=== PATIENT | female | born 1930 | race Caucasian/White ===

== ENCOUNTER 2018-04-02 08:05 | Inpatient (IN) | END 2018-04-19 23:06 | DRG 4 ==

== ENCOUNTER 2018-06-07 09:55 | Day surgery (SDC) | payer MEDICAID, MEDICARE, OTHER ==
[~2018-06-07] VITALS: Ht 134.6 cm; Wt 50.0 kg
[~2018-06-07 09:55] MED LIST: ALEN70SO3 PO; ASPI-716 PO; CALCIUM CARBONATE PO; DIGO125T93 PO; IBUP-1544 PO; LIPA1CAP12 PO; PANT40TA4 PO; PREG50CA PO; ZINC50TA51 PO
[2018-06-07] MEDS ORDERED: METHYLENE BLUE 1% 10 ML INJ NGT STA (10:18)
--- NOTE | 2018-06-07 10:39 | PREAC ---
Date/Time of Note Date/Time of Note DATE: 06/07/18 TIME: 10:37 Anesthesia Eval and Record Evaluation Time Pre-Procedure Interview DATE: 06/07/18 TIME: 10:37 Age 87 Sex female NPO: 8 hrs Preoperative diagnosis ENTEROCUTANEOUS FISTULA (COLONIC FISTULA) Planned procedure COLONOSCOPY AND CLOSURE OF THE FISTULA Past Medical History Past Medical History: Includes Cardio: HTN, CAD, CHF Pulm: Other (RESPIRATORY FAILURE S/P TRACH) Neuro: Other (DEMENTIA) Surgery & Anesthesia Issues No known issue Meds Anticoagulation: No Beta Cristiano within 24 hr: No Reason Beta Cristiano not given: Pt. not on B-Cristiano Reported Medications Ibuprofen* (Ibuprofen*) 800 Mg Tablet, 800 MG PO PRN PAIN PRN 10/07/12 Aspirin* (Ecotrin*) 81 Mg Tablet., 81 MG PO DAILY 10/07/12 Alendronate Sodium* (Alendronate Sodium* Liq) 70 Mg/75 Ml Solution, 70 MG PO WEEKLY 10/07/12 Amylase/Lipase/Protease (Pancrelipase 10,000 Capsule Ec) 1 Cap.ec Capsule., 1 [place] [address] TID 10/07/12 Pregabalin* (Lyrica*) 50 Mg Capsule, 50 MG PO HS 10/07/12 Zinc (ZINC) 50 Mg Tablet, 50 MG PO DAILY 10/07/12 Digoxin* (Lanoxin*) 125 Mcg Tablet, 125 MCG PO DAILY 10/07/12 [Oyster [place] 500] No Conflict Check, PO BID 10/07/12 Pantoprazole* (Pantoprazole*) 40 Mg Tablet., 40 MG PO DAILY 10/07/12 Meds reviewed: Yes Allergies Coded Allergies: No Known Allergy (Unverified , 10/07/12) Allergies Reviewed: Yes Labs/Studies Labs Reviewed: Reviewed by anesthesiologist test: N/A Pre-procedure Exam Airway: Adequate mouth opening, Adequate thyromental dist Mallampati: Mallampati II Teeth: Abnormal (NO TEETH) Lung: Normal Heart: Normal ASA Physical Status ASA physical status: 3 Emergency: None Planned Anesthetic General/MAC: ETT (TRACH) Planned Pain Management Parenteral pain med Pre-operative Attestations Prior to commencing anesthesia and surgery, the patient was re-evaluated, there was verification of: *The patient's identity *The results of appropriate recent lab work and preoperative vital signs *The above evaluation not changing prior to induction *Anesthetic plan, risk benefits, alternative and complications discussed with patient/family; questions answered; patient/family understands, accepts and wishes to proceed. Vasyl Stanley M.D. Jun 07, 2018 10:39
[2018-06-07] MEDS ORDERED: PROPOFOL 40 ML ONE (10:40)
[2018-06-07] MEDS ORDERED: LIDOCAINE 100 MG SYRINGE ONE (10:40)
[2018-06-07 10:52] VITALS: Ht 134.6 cm; Wt 50.0 kg
[2018-06-07] MEDS ORDERED: MULTIVITAMIN LIQUID (10:52)
[2018-06-07] MEDS ORDERED: FLORAJEN3 (10:52)
[2018-06-07] MEDS ORDERED: LEVOTHYROXINE (10:52)
[2018-06-07] MEDS ORDERED: CHLORHEXADINE (10:52)
[2018-06-07] MEDS ORDERED: ZOFRAN (10:52)
[2018-06-07] MEDS ORDERED: LORAZEPAM (10:52)
[2018-06-07] MEDS ORDERED: AMIODARONE (10:52)
[2018-06-07] MEDS ORDERED: QUESTRAN (10:52)
[2018-06-07] MEDS ORDERED: LOMOTIL (10:52)
[2018-06-07] MEDS ORDERED: NYSTATIN (10:52)
[2018-06-07] MEDS ORDERED: SEROQUEL (10:52)
[2018-06-07] MEDS ORDERED: ACETAMINOPHEN (10:52)
[2018-06-07 10:55] VITALS: BP 113/68; PULSE 70; RESP 29
--- NOTE | 2018-06-07 12:18 | PAC ---
Date/Time of Note Date/Time of Note DATE: 06/07/18 TIME: 12:18 Post-Anesthesia Notes Post-Anesthesia Note Last documented vital signs Vital Signs Date Temp Pulse Resp B/P (MAP) Pulse Ox O2 O2 Flow FiO2 Time Delivery Rate 06/07/18 98.9 70 29 113/68 97 Nasal 12:18 (83) Cannula Activity: WNL Respiratory function: WNL Cardiovascular function: WNL Mental status: Baseline Pain reasonably controlled: Yes Hydration appropriate: Yes Nausea/Vomiting absent: Yes Vasyl Stanley M.D. Jun 07, 2018 12:18
[2018-06-07 13:19] VITALS: BP 146/66; PULSE 70; RESP 14
== END 2018-06-07 17:13 | disposition home or self-care (01) ==
LOC: GIL 09:55
PROVIDERS: ATTEND Internal Medicine Gastroenterology
DX: Z12.11 Encounter for screening for malignant neoplasm of colon (principal); K63.2 Fistula of intestine
CPT/HCPCS: 45378; J2001

== ENCOUNTER 2018-06-14 13:36 | Inpatient (IN) | payer MEDICARE, OTHER ==
[~2018-06-14] VITALS: Ht 157.5 cm; Wt 52.3 kg
[2018-06-14] VITALS (22 sets, daily range): BP systolic 82–264; BP diastolic 33–233; PULSE 70–72; RESP 11–28; Ht 157.5 cm; Wt 52.3 kg
[~2018-06-14 13:36] MED LIST changes: +ACETAMINOPHEN; -ALEN70SO3 PO; +AMIODARONE; -ASPI-716 PO; -CALCIUM CARBONATE PO; +CHLORHEXADINE; +FLORAJEN3; -IBUP-1544 PO; +LEVOTHYROXINE; -LIPA1CAP12 PO; +LOMOTIL; +LORAZEPAM; +MULTIVITAMIN LIQUID; +NYSTATIN; -PANT40TA4 PO; -PREG50CA PO; +QUESTRAN; +SEROQUEL; -ZINC50TA51 PO; +ZOFRAN
--- NOTE | 2018-06-14 13:52 | ERD ---
ER Documentation Chief Complaint Chief Complaint increased lethargy HPI The patient is a 87-year-old female, presenting to the ER because of increased lethargy and low blood pressure the history is obtained from the EMS., She was given normal saline 500 mL IV due to low blood pressure prior to arrival. She was put on ventilator about 2 days ago, usually she is on T-piece. She is unable to provide any history, but follow commands. The history is obtained from medical record. Her MD wants a head CT according to EMS Medical history: Chronic respite failure, dysphagia, dyslipidemia, CAD dementia, interstitial lung disease, history of atrial fibrillation, history of CHF, hypertension, anemia, hypothyroidism, h/o tachybrady syn Medical history: Tracheostomy, pacemaker ROS All systems reviewed and are negative except as per history of present illness. Medications Home Meds Reported Medications Chlorhexidine Gluconate (Peridex) 473 Ml Mouthwash, 15 ML MM QAM, BOTTLE 06/14/18 Ondansetron Hcl* (Zofran*) 4 Mg Tab, 4 MG PO Q6H PRN for NAUSEA AND OR VOMITING, TAB 06/14/18 Quetiapine Fumarate* (Seroquel*) 25 Mg Tablet, 25 MG GTB BID, #60 TAB 06/14/18 Nystatin (Nystatin) 100,000 Unit/1 Ml Oral.susp, 5 ML PO QID PRN for PRN, #60 ML 06/14/18 Quetiapine Fumarate* (Seroquel*) 25 Mg Tablet, 25 MG GTB BID, #60 TAB 06/14/18 Digoxin* (Digitek*) 125 Mcg Tablet, 0.125 MG PO Q48H, TAB 06/14/18 Cholestyramine* (Questran*) 1 Pkt Susp, 4 GM GTB DAILY, PACKET 06/14/18 Vit A,C & E/Lutein/Minerals (Ocuvite) 1 Each Tablet, 1 TAB GTB DAILY, TAB 06/14/18 Levothyroxine Sodium* (Levothyroxine Sodium*) 25 Mcg Tablet, 25 MCG GTB BEFORE BREAKFAST, #30 TAB 06/14/18 Lansoprazole* (Lansoprazole*) 30 Mg Capsule.dr, 30 MG GTB DAILY, CAP 06/14/18 Ascorbic Acid* (Vitamin C*) 500 Mg Capsule.sa, 500 MG GTB BID, CAP 06/14/18 Apixaban* (Eliquis*) 2.5 Mg Tablet, 2.5 MG GTB BID, TAB 06/14/18 Amiodarone Hcl* (Amiodarone Hcl*) 200 Mg Tablet, 400 MG GTB BID, #180 TAB 06/14/18 Metoprolol Tartrate* (Lopressor*) 25 Mg Tab, 25 MG GTB BID, #60 TAB 06/14/18 Balsam Kady/Kopperl Oil (Venelex Ointment) 60 Gm Oint..gm., 1 APPLIC TOP NEEDED PRN for PRN, #1 TUB 06/14/18 Mupirocin Calcium* (Mupirocin*) 2% - 15 Gram Cream..g., 1 APPLIC TOP DAILY, #1 TUB 06/14/18 Discontinued Reported Medications [Chlorhexadine] No Conflict Check 06/07/18 [Lorazepam] No Conflict Check 06/07/18 [Zofran] No Conflict Check 06/07/18 [Acetaminophen] No Conflict Check 06/07/18 [Lomotil] No Conflict Check 06/07/18 [Florajen3] No Conflict Check 06/07/18 [Nystatin] No Conflict Check 06/07/18 [Questran] No Conflict Check 06/07/18 [Multivitamin Liquid] No Conflict Check 06/07/18 [Amiodarone] No Conflict Check 06/07/18 [Seroquel] No Conflict Check 06/07/18 [Levothyroxine ] No Conflict Check 06/07/18 Digoxin* (Lanoxin*) 125 Mcg Tablet, 125 MCG PO DAILY 10/07/12 Ibuprofen* (Ibuprofen*) 800 Mg Tablet, 800 MG PO PRN PAIN PRN 10/07/12 Aspirin* (Ecotrin*) 81 Mg Tablet.dr, 81 MG PO DAILY 10/07/12 Alendronate Sodium* (Alendronate Sodium* Liq) 70 Mg/75 Ml Solution, 70 MG PO WEEKLY 10/07/12 Amylase/Lipase/Protease (Pancrelipase 10,000 Capsule Ec) 1 Cap.ec Capsule.dr, 1 [place] [address] TID 10/07/12 Pregabalin* (Lyrica*) 50 Mg Capsule, 50 MG PO HS 10/07/12 Zinc (ZINC) 50 Mg Tablet, 50 MG PO DAILY 10/07/12 [Oyster Shady 500] No Conflict Check, PO BID 10/07/12 Pantoprazole* (Pantoprazole*) 40 Mg Tablet.dr, 40 MG PO DAILY 10/07/12 Allergies Allergies: Coded Allergies: No Known Allergy (Unverified , 10/07/12) PMhx/Soc History of Surgery: Yes (RIGHT THIGH WITH METAL) Anesthesia Reaction: No Hx Neurological Disorder: Yes (DEMENTIA PER FACILITY RESP THERAPIST) Hx Respiratory Disorders: No (RESPIRATORY FAILURE WITH TRACH PORTEX SIZE 7) Hx Cardiac Disorders: Yes (CAD, CHF) Hx Psychiatric Problems: No Hx Miscellaneous Medical Probl: No Hx Alcohol Use: No Hx Substance Use: No Hx Tobacco Use: No Physical Exam Vitals Vital Signs Date Temp Pulse Resp B/P (MAP) Pulse Ox O2 O2 Flow FiO2 Time Delivery Rate 06/14/18 70 18 94/68 (77) 100 [place] 16:52 l Ventilato r 06/14/18 70 18 98 40 15:30 06/14/18 98.9 70 18 93/49 (64) 100 [place] 15:06 l Ventilato r 06/14/18 70 18 106/66 100 [place] 14:49 (79) l Ventilato r 06/14/18 100.4 70 17 94/49 (64) 98 [place] 14:27 l Ventilato r 06/14/18 100.4 14:16 06/14/18 100.4 70 17 82/62 (69) 98 14:10 06/14/18 70 18 98 40 14:00 Physical Exam Const: No acute distress. Head: Atraumatic. Eyes: Normal Conjunctiva. ENT: Normal External Ears, Nose and Mouth. Neck: Full range of motion. No meningismus. Resp: Clear to auscultation bilaterally. Cardio: Irregularly irregular Abd: Soft, non distended, normal bowel sounds, non tender. Skin: No petechiae or rashes. Back: No midline or flank tenderness. Ext: No cyanosis, or edema. Neur: Awake and alert. No focal deficit Psych: Unable to perform due to her condition Result Diagram: 06/14/18 1405 06/14/18 1405 Results 24 hrs Laboratory Tests Test 06/14/18 13:59 06/14/18 14:00 06/14/18 14:05 06/14/18 14:30 POC Venous 2.4 mmol/L Lactate Urine Color YELLOW Urine Clarity SLIGHTLY CLOUD Y Urine pH 8.0 Urine Specific 1.011 [place] Urine Ketones NEGATIVE mg/dL Urine Nitrite NEGATIVE mg/dL Urine Bilirubin NEGATIVE mg/dL Urine NEGATIVE mg/dL Urobilinogen Urine Leukocyte 1+ Darrell/ul Esterase Urine 1 /HPF Microscopic RBC Urine 23 /HPF Microscopic WBC Urine Bacteria FEW /HPF Urine NEGATIVE mg/dL Hemoglobin Urine Glucose NEGATIVE mg/dL Urine Total NEGATIVE mg/dl Protein White Blood 10.7 10^3/ul Count Red Blood Count 3.56 10^6/ul Hemoglobin 8.5 g/dl Hematocrit 30.8 % Mean 86.5 fl Corpuscular Volume Mean 23.9 pg Corpuscular Hemoglobin Mean 27.6 g/dl Corpuscular Hemoglobin Conc ent Red Cell 16.5 % Distribution Width Platelet Count 197 10^3/UL Mean Platelet 12.0 fl Volume Immature 0.500 % Granulocytes % Neutrophils % 70.8 % Lymphocytes % 20.8 % Monocytes % 7.4 % Eosinophils % 0.1 % Basophils % 0.4 % Nucleated Red 0.0 /100WBC Blood Cells % Immature 0.050 10^3/ul Granulocytes # Neutrophils # 7.6 10^3/ul Lymphocytes # 2.2 10^3/ul Monocytes # 0.8 10^3/ul Eosinophils # 0.0 10^3/ul Basophils # 0.0 10^3/ul Nucleated Red 0.0 10^3/ul Blood Cells # Prothrombin 15.7 Sec Time Prothrombin 1.2 Time Ratio INR 1.24 International Normalized Rati o Activated 45.6 Sec Partial Thrombo plast Time Sodium Level 141 mmol/L Potassium Level 3.7 mmol/L Chloride Level 82 mmol/L Carbon Dioxide 57 mmol/L Level Anion Gap 2 Blood Urea 61 mg/dl Nitrogen Creatinine 0.82 mg/dl Est Glomerular mL/min Filtrat Rate mL/min Glucose Level 105 mg/dl Calcium Level 8.7 mg/dl Total Bilirubin 0.3 mg/dl Direct 0.00 mg/dl Bilirubin Indirect 0.3 mg/dl Bilirubin Aspartate Amino 61 IU/L Transf (AST/SGO T) Alanine 46 IU/L Aminotransferas e (ALT/SGPT) Alkaline 106 IU/L Phosphatase Troponin I 0.052 ng/ml Total Protein 6.7 g/dl Albumin 2.8 g/dl Globulin 3.90 g/dl Albumin/Globuli 0.71 n Ratio Blood Gas Blood arterial Specimen Source Arterial Blood 06/14/2018 2:25 Date Drawn :55 PM Arterial Blood 7.586 pH (Temp corrected ) Arterial Blood 54.0 mmhg pCO2 (Temp correct) Arterial Blood 75.7 mmHG pO2 (Temp corrected ) Arterial Blood 50.2 mmol/L HCO3 Arterial Blood 25.4 mmol/L Base Excess Arterial Blood 96.6 mmHG Oxygen Saturati on Rusty Test ACCEPTAB Arterial Blood Right Radial Gas Puncture Site Arterial 0.5 % Blood Carboxyhe moglobin Arterial Blood 0.2 % Methemoglobin Blood Gas A-a 147.4 mmHg O2 Differential Oxyhemoglobin 95.9 % Percent Blood Gas 37.0 C Temperature Blood Gas 14.0 Respiration Rate Blood Gas 14 Actual Respiration Rat e Blood Gas VENT - AC Modality FiO2 40.0 % Blood Gas Tidal 450.0 mL Volume Blood Gas Low 5.0 cmH2O PEEP Setting Blood Gas DR CAMILO Critical Value Read Back Blood Gas TM Notified Whom Blood Gas 06/14/2018 2:35 Notified Time :42 PM Test 06/14/18 15:18 Blood Gas Blood arterial Specimen Source Arterial Blood 06/14/2018 5:26: Date Drawn 32 PM Arterial Blood 7.625 pH (Temp corrected ) Arterial Blood 44.6 mmhg pCO2 (Temp correct) Arterial Blood 67.5 mmHG pO2 (Temp corrected ) Arterial Blood 45.3 mmol/L HCO3 Arterial Blood 22.0 mmol/L Base Excess Arterial Blood 96.0 mmHG Oxygen Saturati on Rusty Test ACCEPTAB Arterial Blood Right Radial Gas Puncture Site Arterial 0.3 % Blood Carboxyhe moglobin Arterial Blood 0.3 % Methemoglobin Blood Gas A-a 166.4 mmHg O2 Differential Oxyhemoglobin 95.4 % Percent Blood Gas 37.0 C Temperature Blood Gas 18.0 Respiration Rate Blood Gas 18 Actual Respiration Rat e Blood Gas VENT - AC Modality FiO2 40.0 % Blood Gas Tidal 450.0 mL Volume Blood Gas Low 5.0 cmH2O PEEP Setting Blood Gas CAMILO Critical Value Read Back Blood Gas MDA Notified Whom Blood Gas 06/14/2018 5:31: Notified Time 19 PM Current Medications Medications Dose Sig/Merlin Start Time Status Last (Trade) Ordered Route PRN Stop Time Admin Dose Reason Admin Vancomycin 250 ml @ ONCE ONCE 06/14/18 DC 06/14/18 HCl 125 mls/hr IVPB 14:30 14:58 06/14/18 16:29 Piperacillin 100 ml @ ONCE ONCE 06/14/18 DC 06/14/18 Sod/ 200 mls/hr IVPB 14:30 14:16 Tazobactam 06/14/18 14:59 Sod 650 mg ONCE ONCE 06/14/18 DC 06/14/18 Acetaminophen AL 14:30 14:16 (Tylenol 06/14/18 14:31 Supp) Sodium 2,050 ml @ BOLUS X1 06/14/18 DC 06/14/18 Chloride 1,025 mls/hr ONCE IV 14:30 14:17 06/14/18 16:29 Lidocaine 5 ml ONCE ONCE 06/14/18 DC (Xylocaine SC 15:00 1% (Mpf)) 06/14/18 15:01 Sodium 1,000 ml @ Q1H ONCE 06/14/18 DC Chloride 1,000 mls/hr IV 17:00 06/14/18 17:59 Procedures/[place] [address] Radiology Main Line: [phone] DIAGNOSTIC IMAGING REPORT Patient: BEAU SUN : 1930 Age: 87 Sex: F MR #: [id number] DOS: 06/14/18 1352 Ordering MD: FORD CAMILO MD Location: E/R Room/Bed: PROCEDURE: CT Brain without contrast. CLINICAL INDICATION: Altered mental status TECHNIQUE: Routine CT scan of the brain was performed on a high resolution multi detector scanner without intravenous contrast. One or more of the fol lowing dose reduction techniques were used: Automated exposure control; Adjustment of the mA and/or kV according to patient size; Use of iterative reconstruction technique. CTDI = 36 mGy. DLP = 634 mGy-cm. DICOM images are available. COMPARISON: No prior relevant examinations are available for comparison. FINDINGS: Hemorrhage: No evidence of intracranial hemorrhage. Acute ischemic changes: No evidence of acute ischemic changes. Mass effect: None. Parenchymal volume: Moderate central parenchymal volume loss is evident. Ventricular system: Concordant with parenchymal volume. 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 There are numerous and confluent areas of significant low attenuation change within the supratentorial white matter most compatible with severe chronic microvascular ischemic changes. Atherosclerotic calcifications of the cavernous portions of both internal carotid arteries are present. Extracranial soft tissues: Unremarkable. Calvarium: No fractures. Paranasal sinuses: Mild secretions throughout. Mastoid air cells: Visualized mastoid air cells are clear. IMPRESSION: No acute intracranial abnormalities. Severe chronic-appearing microvascular ischemic changes of the supratentorial white matter with small chronic appearing cerebellar infarcts. MRI of the brain can be obtained for further evaluation. RPTAT: AADD .Norbert Omer MD, MD Date Time Electronically viewed and signed by .Norbert Omer MD, MD on 06/14/2018 16:38 .B/ CC: FORD CAMILO MD [id number] [place] [address] Radiology Main Line: [phone] DIAGNOSTIC IMAGING REPORT Patient: BEAU SUN : 1930 Age: 87 Sex: F MR #: [id number] DOS: 06/14/18 1352 Ordering MD: FORD CAMILO MD Location: E/R Room/Bed: PROCEDURE: XR Chest. CLINICAL INDICATION: Sepsis . Dyspnea TECHNIQUE: Single frontal chest x-ray. COMPARISON: CHEST 05/31/2018; CHEST 05/03/2018 FINDINGS: There is tracheostomy tube and left-sided dual chamber cardiac pacer in place. . Cardiomegaly with calcific atherosclerosis of the aorta is seen.. There is bibasilar atelectasis or consolidations improved on the right. Small left pleural effusion blunts the costophrenic angle.. There are multiple old healed right rib fractures.. IMPRESSION: Cardiomegaly with calcific atherosclerosis of the aorta. Bibasilar atelectasis or consolidations with small left pleural effusion. Tracheostomy tube and left-sided cardiac pacer in place.. RPTAT: BBCC .Kemar Torres MD, MD Date Time Electronically viewed and signed by .Kemar Torres MD, MD on 06/14/2018 14:54 .L/ CC: FORD CAMILO MD [id number] EKG: Read by emergency physician Rate/Rhythm: Atrial paced 71 beats/min QRS, ST, T-waves: No ST elevation, nonspecific T abn, prolonged QT Impression: Abnormal EKG MEDICAL MAKING DECISION: The patient is 87-year-old female, presenting with acute severe sepsis, acute cystitis, acute dehydration. She was treated with vancomycin IV, Zosyn IV, normosaline 30 mL/kg IV and additional 1 L of saline for acute severe sepsis The differential diagnoses considered include but are not limited to ventilator associated pneumonia, aspiration pneumonia, UTI, pyelonephritis MDM: Patient's infectious symptoms have not stabilized and the patient is at risk of rapid decompensation. The patient will be admitted for careful hydration, antibiotic therapy, and infectious source control. SEVERE SEPSIS CRITERIA: Infectious source:uti End organ damage indicated by: Lactate > 2.0 mmol/L SEPSIS MANAGEMENT Time of recognition of severe sepsis:2:30 pm 3 HOUR BUNDLE Blood cultures x 2 before broad-spectrum antibiotics: Yes 30 ml/kg NS bolus completed Initial lactate2.4 Repeat lactate Pending SEPTIC SHOCK ASSESSMENT: No lactic acid > 4.0 No persistent hypotension (SBP < 90 or 40 mmHg drop, MAP < 65) despite 30 mL/kg IV fluid bolus CRITICAL CARE Critical care time 35 minutes Emergent fluid management while maintaining close respiratory support. Provision of immediate and broad-spectrum antibiotic therapy. Simultaneous assessment for possible sources in order to direct targeted therapy. Consideration for invasive and chemical support to prevent cardiopulmonary collapse. Critical care time is independent of procedures performed. Departure Diagnosis: Primary Impression: Severe sepsis Additional Impressions: UTI (urinary tract infection) Dehydration Anemia Condition: Critical Comments I discussed the findings with the patient. I discussed the patient with the hospitalist Dr De La Torre at 5 pm . who was made aware of the lab, the treatment, the patient condition. The patient is admitted to ICU Disclaimer: Inadvertent spelling and grammatical errors are likely due to EHR/dictation software use and do not reflect on the overall quality of patient care. Also, please note that the electronic time recorded on this note does not necessarily reflect the actual time of the patient encounter. FORD CAMILO MD Jun 14, 2018 13:52
[2018-06-14] MEDS ORDERED: MUPI15CR9 TOP (14:26)
[2018-06-14] MEDS ORDERED: BALS60OI TOP (14:27)
[2018-06-14] MEDS ORDERED: METO-448 GTB (14:28)
[2018-06-14] MEDS ORDERED: AMIO200T4 GTB (14:29)
[2018-06-14] MEDS ORDERED: PIPER-TAZO 3.375 GM IV (PMX) 100 ML IVPB ONE (14:30)
[2018-06-14] MEDS ORDERED: APIX2.5T GTB (14:30)
[2018-06-14] MEDS ORDERED: ASCO500C7 GTB (14:30)
[2018-06-14] MEDS ORDERED: ACETAMINOPHEN 650 MG SUPP PR ONE (14:30)
[2018-06-14] MEDS ORDERED: SOD CHLORIDE 0.9% 2,050 ML IV ONE (14:30)
[2018-06-14] MEDS ORDERED: VANCOMYCIN 1 GM (PMX) 250 ML IVPB ONE (14:30)
[2018-06-14] MEDS ORDERED: LANS30CA GTB (14:31)
[2018-06-14] MEDS ORDERED: LEVO25TA6 GTB (14:31)
[2018-06-14] MEDS ORDERED: VIT1TABL32 GTB (14:32)
[2018-06-14] MEDS ORDERED: QUESTRAN GTB (14:32)
[2018-06-14] MEDS ORDERED: DIGO125T PO (14:33)
[2018-06-14] MEDS ORDERED: QUET25TA GTB ×2 (14:34→14:36)
[2018-06-14] MEDS ORDERED: NYST1000 PO (14:35)
[2018-06-14] MEDS ORDERED: ONDA4TAB13 PO (14:36)
[2018-06-14] MEDS ORDERED: CHLO473M4 MM (14:37)
[2018-06-14] MEDS ORDERED: LIDOCAINE 1% (MPF) 5 ML VIAL SC ONE (15:00)
[2018-06-14] MEDS ORDERED: SOD CHLORIDE 0.9% 1,000 ML IV ONE (17:00)
[2018-06-14] MEDS ORDERED: ONDANSETRON 4 MG INJ IV PRN (18:30)
[2018-06-14] MEDS ORDERED: NACL 0.9% 3 ML SYG IV SCH (18:30)
[2018-06-14] MEDS ORDERED: VANCOMYCIN IV PER PHARMACY XX SCH (18:30)
--- NOTE | 2018-06-14 18:35 | HP ---
Date/Time of Note Date/Time of Note DATE: 06/14/18 TIME: 18:25 Assessment/Plan VTE Prophylaxis SCD applied (from Nsg): Yes Pharmacological prophylaxis: apixaban Lines/Catheters IV Catheter Type (from Nrsg): Saline Lock Assessment/Plan Hospital Course 1. Septic shock secondary to UTI Broad-spectrum antibiotics with vancomycin and Zosyn IV fluids Admit to ICU Monitor lactic acid Follow-up on cultures 2. Chronic respiratory failure secondary to CHF and pneumonia status post tracheostomy Continue vent support Pulmonology consultation 3. Hypothyroidism Continue home meds 4. A. fib status post pacemaker placement Continue anticoagulation 5. Normocytic anemia likely secondary to chronic disease Monitor 6. Metabolic alkalosis likely secondary to contraction IV fluids 7. Azotemia likely secondary to dehydration IV fluids Prophylaxis: Eliquis Result Diagram: 06/14/18 1405 06/14/18 1405 Results 24hrs Laboratory Tests Test 06/14/18 13:59 06/14/18 14:00 06/14/18 14:05 06/14/18 14:30 POC Venous 2.4 *H Lactate Urine Color YELLOW Urine Clarity SLIGHTLY CLOUDY A Urine pH 8.0 Urine Specific 1.011 [place] Urine Ketones NEGATIVE Urine Nitrite NEGATIVE Urine Bilirubin NEGATIVE Urine NEGATIVE Urobilinogen Urine Leukocyte 1+ H Esterase Urine 1 Microscopic RBC Urine 23 H Microscopic WBC Urine Bacteria FEW A Urine NEGATIVE Hemoglobin Urine Glucose NEGATIVE Urine Total NEGATIVE Protein White Blood 10.7 # Count Red Blood Count 3.56 L Hemoglobin 8.5 L Hematocrit 30.8 L Mean 86.5 Corpuscular Volume Mean 23.9 L Corpuscular Hemoglobin Mean 27.6 L Corpuscular Hemoglobin Conc ent Red Cell 16.5 H Distribution Width Platelet Count 197 # Mean Platelet 12.0 H Volume Immature 0.500 H Granulocytes % Neutrophils % 70.8 Lymphocytes % 20.8 Monocytes % 7.4 Eosinophils % 0.1 Basophils % 0.4 Nucleated Red 0.0 Blood Cells % Immature 0.050 H Granulocytes # Neutrophils # 7.6 H Lymphocytes # 2.2 Monocytes # 0.8 Eosinophils # 0.0 Basophils # 0.0 Nucleated Red 0.0 Blood Cells # Prothrombin 15.7 H Time Prothrombin 1.2 Time Ratio INR 1.24 International Normalized Rati o Activated 45.6 H Partial Thrombo plast Time Sodium Level 141 Potassium Level 3.7 Chloride Level 82 L Carbon Dioxide 57 *H Level Anion Gap 2 L Blood Urea 61 H Nitrogen Creatinine 0.82 Est Glomerular Filtrat Rate mL/min Glucose Level 105 Calcium Level 8.7 Total Bilirubin 0.3 Direct 0.00 Bilirubin Indirect 0.3 Bilirubin Aspartate Amino 61 H Transf (AST/SGO T) Alanine 46 Aminotransferas e (ALT/SGPT) Alkaline 106 Phosphatase Troponin I 0.052 Total Protein 6.7 Albumin 2.8 L Globulin 3.90 H Albumin/Globuli 0.71 n Ratio Blood Gas Blood Specimen arterial Source Arterial Blood 06/14/2018 2:25 Date Drawn :55 PM Arterial Blood 7.586 *H pH (Temp corrected ) Arterial Blood 54.0 H pCO2 (Temp correct) Arterial Blood 75.7 L pO2 (Temp corrected ) Arterial Blood 50.2 *H HCO3 Arterial Blood 25.4 H Base Excess Arterial Blood 96.6 Oxygen Saturati on Rusty Test ACCEPTAB Arterial Blood Right Radial Gas Puncture Site Arterial 0.5 Blood Carboxyhe moglobin Arterial Blood 0.2 Methemoglobin Blood Gas A-a 147.4 H O2 Differential Oxyhemoglobin 95.9 Percent Blood Gas 37.0 Temperature Blood Gas 14.0 Respiration Rate Blood Gas 14 Actual Respiration Rat e Blood Gas VENT - AC Modality FiO2 40.0 Blood Gas Tidal 450.0 Volume Blood Gas Low 5.0 PEEP Setting Blood Gas DR CAMILO Critical Value Read Back Blood Gas TM Notified Whom Blood Gas 06/14/2018 2:35 Notified Time :42 PM Test 06/14/18 15:18 06/14/18 17:15 Blood Gas Blood arterial Specimen Source Arterial Blood 06/14/2018 5:26: Date Drawn 32 PM Arterial Blood 7.625 *H pH (Temp corrected ) Arterial Blood 44.6 pCO2 (Temp correct) Arterial Blood 67.5 L pO2 (Temp corrected ) Arterial Blood 45.3 *H HCO3 Arterial Blood 22.0 H Base Excess Arterial Blood 96.0 Oxygen Saturati on Rusty Test ACCEPTAB Arterial Blood Right Radial Gas Puncture Site Arterial 0.3 Blood Carboxyhe moglobin Arterial Blood 0.3 Methemoglobin Blood Gas A-a 166.4 H O2 Differential Oxyhemoglobin 95.4 Percent Blood Gas 37.0 Temperature Blood Gas 18.0 Respiration Rate Blood Gas 18 Actual Respiration Rat e Blood Gas VENT - AC Modality FiO2 40.0 Blood Gas Tidal 450.0 Volume Blood Gas Low 5.0 PEEP Setting Blood Gas CAMILO Critical Value Read Back Blood Gas MDA Notified Whom Blood Gas 06/14/2018 5:31: Notified Time 19 PM Lactic Acid 2.3 *H Level HPI/ROS Admit Date/Time Admit Date/Time June 14, 2018 Hx of Present Illness Patient is an 87-year-old female with a history of respiratory failure status post tracheostomy, diastolic heart failure, hypothyroidism, A. fib status post pacemaker placement, septic shock secondary to pneumonia and UTI. Patient was hospitalized several months ago for septic shock as well as respiratory failure and had tracheostomy placement. Patient was discharged to a rehab facility, patient was sent from rehab due to hypotension and fevers. In the ER UA was consistent with UTI and lactic acid was elevated. Patient was started on IV fluids and given antibiotics, history is obtained from patient's daughter who is bedside. ROS Subjective hx not possible: pt critical status PMH/Family/Social Past Medical History As per HPI Coded Allergies: No Known Allergy (Unverified , 10/07/12) Past Surgical History Pacemaker placement Family History Significant Family History: no pertinent family hx Social History Alcohol Use: none Smoking Status: Never smoker Drug Use: none Exam/Review of Systems Vital Signs Vitals Vital Signs Date Temp Pulse Resp B/P (MAP) Pulse Ox O2 O2 Flow FiO2 Time Delivery Rate 06/14/18 70 20 161/100 93 Mechanical 17:56 (120) Ventilator 06/14/18 40 17:30 06/14/18 98.9 15:06 Exam Constitutional: non-verbal Respiratory: clear to auscultation Cardiovascular: regular rate and rhythm Gastrointestinal: soft; No distended Musculoskeletal: nl extremities to inspection ISAIAH CANDELARIO Jun 14, 2018 18:35
[2018-06-14] MEDS: morphine 2 MG INJ IV PRN ×2 (19:03→19:09)
[2018-06-14] MEDS ORDERED: morphine 4 MG/ML VIAL ONE (19:07)
[2018-06-14] MEDS ORDERED: hydrALAzine 20 MG INJ IV ONE (20:00)
[2018-06-14] MEDS: SOD CHLORIDE 0.9% 1,000 ML IV SCH (20:05)
[2018-06-14] MEDS: ASCORBIC ACID 500 MG TAB GTB SCH (20:29)
[2018-06-14] MEDS: AMIODARONE 200 MG TAB GTB SCH (20:29)
[2018-06-14] MEDS: APIXABAN 5 MG TABLET GTB SCH (20:30)
[2018-06-14] MEDS: QUETIAPINE 25 MG TAB GTB SCH (20:30)
[2018-06-14] MEDS: PIPER-TAZO 3.375 GM IV (PMX) 100 ML IVPB SCH ×2 (20:31→23:34)
[2018-06-15] VITALS (36 sets, daily range): BP systolic 79–170; BP diastolic 49–140; PULSE 69–84; RESP 12–29
[2018-06-15] MEDS ORDERED: SOD CHLORIDE 0.9% 1,000 ML IV ONE (01:00)
[2018-06-15] MEDS: SOD CHLORIDE 0.9% 1,000 ML IV SCH (03:25)
[2018-06-15] MEDS: PIPER-TAZO 3.375 GM IV (PMX) 100 ML IVPB SCH ×4 (05:12→23:44)
[2018-06-15] MEDS: LEVOTHYROXINE 25 MCG TAB GTB SCH (06:24)
--- NOTE | 2018-06-15 07:38 | CONS ---
Date/Time of Note Date/Time of Note DATE: 06/15/18 TIME: 07:28 Assessment/Plan Assessment/Plan Hospital Course 1. Septic shock 2. Paroxysmal atrial fibrillation and P supraventricular tachycardia 3. Respiratory failure status post tracheostomy now back on the vent 4. Sick sinus syndrome status post permanent pacemaker 5. Urinary tract infection and possible pneumonia 6. History of congestive heart failure/diastolic heart failure 7. History of enterocutaneous fistula and liver disease 8. Dysphagia status post PEG placement 9. Encephalopathy 10. Lactic acidosis Recommendations: Patient has already been started on Zosyn. Eliquis will be continued as long as no active bleeding is noted I will continue with amiodarone at the current dose for now and will decrease the dose slowly as long as she remains in sinus or paced rhythm Vent support to be continued Gentle IV fluid. Avoid fluid overload Nutritional support to be resumed once okay from GI standpoint I will start the patient on Protonix for GI prophylaxis as well Electrolytes including potassium to be replaced as needed basis Thank you for his referral. We will continue to follow along with you MARLENA GARCIA MD [facility] Result Diagram: 06/15/18 0431 06/15/18 0432 Results 24hrs Laboratory Tests Test 06/14/18 13:59 06/14/18 14:00 06/14/18 14:05 06/14/18 14:30 POC Venous 2.4 *H Lactate Urine Color YELLOW Urine Clarity SLIGHTLY CLOUDY A Urine pH 8.0 Urine Specific 1.011 [place] Urine Ketones NEGATIVE Urine Nitrite NEGATIVE Urine Bilirubin NEGATIVE Urine NEGATIVE Urobilinogen Urine Leukocyte 1+ H Esterase Urine 1 Microscopic RBC Urine 23 H Microscopic WBC Urine Bacteria FEW A Urine NEGATIVE Hemoglobin Urine Glucose NEGATIVE Urine Total NEGATIVE Protein White Blood 10.7 # Count Red Blood Count 3.56 L Hemoglobin 8.5 L Hematocrit 30.8 L Mean 86.5 Corpuscular Volume Mean 23.9 L Corpuscular Hemoglobin Mean 27.6 L Corpuscular Hemoglobin Conc ent Red Cell 16.5 H Distribution Width Platelet Count 197 # Mean Platelet 12.0 H Volume Immature 0.500 H Granulocytes % Neutrophils % 70.8 Lymphocytes % 20.8 Monocytes % 7.4 Eosinophils % 0.1 Basophils % 0.4 Nucleated Red 0.0 Blood Cells % Immature 0.050 H Granulocytes # Neutrophils # 7.6 H Lymphocytes # 2.2 Monocytes # 0.8 Eosinophils # 0.0 Basophils # 0.0 Nucleated Red 0.0 Blood Cells # Prothrombin 15.7 H Time Prothrombin 1.2 Time Ratio INR 1.24 International Normalized Rati o Activated 45.6 H Partial Thrombo plast Time Sodium Level 141 Potassium Level 3.7 Chloride Level 82 L Carbon Dioxide 57 *H Level Anion Gap 2 L Blood Urea 61 H Nitrogen Creatinine 0.82 Est Glomerular Filtrat Rate mL/min Glucose Level 105 Calcium Level 8.7 Total Bilirubin 0.3 Direct 0.00 Bilirubin Indirect 0.3 Bilirubin Aspartate Amino 61 H Transf (AST/SGO T) Alanine 46 Aminotransferas e (ALT/SGPT) Alkaline 106 Phosphatase Troponin I 0.052 Total Protein 6.7 Albumin 2.8 L Globulin 3.90 H Albumin/Globuli 0.71 n Ratio Blood Gas Blood Specimen arterial Source Arterial Blood 06/14/2018 2:25 Date Drawn :55 PM Arterial Blood 7.586 *H pH (Temp corrected ) Arterial Blood 54.0 H pCO2 (Temp correct) Arterial Blood 75.7 L pO2 (Temp corrected ) Arterial Blood 50.2 *H HCO3 Arterial Blood 25.4 H Base Excess Arterial Blood 96.6 Oxygen Saturati on Rusty Test ACCEPTAB Arterial Blood Right Radial Gas Puncture Site Arterial 0.5 Blood Carboxyhe moglobin Arterial Blood 0.2 Methemoglobin Blood Gas A-a 147.4 H O2 Differential Oxyhemoglobin 95.9 Percent Blood Gas 37.0 Temperature Blood Gas 14.0 Respiration Rate Blood Gas 14 Actual Respiration Rat e Blood Gas VENT - AC Modality FiO2 40.0 Blood Gas Tidal 450.0 Volume Blood Gas Low 5.0 PEEP Setting Blood Gas DR CAMILO Critical Value Read Back Blood Gas TM Notified Whom Blood Gas 06/14/2018 2:35 Notified Time :42 PM Test 06/14/18 15:18 06/14/18 17:15 06/15/18 04:31 06/15/18 04:32 Blood Gas Blood arterial Specimen Source Arterial Blood 06/14/2018 5:26: Date Drawn 32 PM Arterial Blood 7.625 *H pH (Temp corrected ) Arterial Blood 44.6 pCO2 (Temp correct) Arterial Blood 67.5 L pO2 (Temp corrected ) Arterial Blood 45.3 *H HCO3 Arterial Blood 22.0 H Base Excess Arterial Blood 96.0 Oxygen Saturati on Rusty Test ACCEPTAB Arterial Blood Right Radial Gas Puncture Site Arterial 0.3 Blood Carboxyhe moglobin Arterial Blood 0.3 Methemoglobin Blood Gas A-a 166.4 H O2 Differential Oxyhemoglobin 95.4 Percent Blood Gas 37.0 Temperature Blood Gas 18.0 Respiration Rate Blood Gas 18 Actual Respiration Rat e Blood Gas VENT - AC Modality FiO2 40.0 Blood Gas Tidal 450.0 Volume Blood Gas Low 5.0 PEEP Setting Blood Gas CAMILO Critical Value Read Back Blood Gas MDA Notified Whom Blood Gas 06/14/2018 5:31: Notified Time 19 PM Lactic Acid 2.3 *H 2.0 Level White Blood 8.6 Count Red Blood Count 3.31 L Hemoglobin 8.1 L Hematocrit 28.4 L Mean 85.8 Corpuscular Volume Mean 24.5 L Corpuscular Hemoglobin Mean 28.5 L Corpuscular Hemoglobin Conc ent Red Cell 17.3 H Distribution Width Platelet Count 145 # Mean Platelet 11.6 H Volume Immature 0.500 H Granulocytes % Neutrophils % 75.1 Lymphocytes % 16.1 Monocytes % 6.9 Eosinophils % 0.9 Basophils % 0.5 Nucleated Red 0.0 Blood Cells % Immature 0.040 H Granulocytes # Neutrophils # 6.5 Lymphocytes # 1.4 Monocytes # 0.6 Eosinophils # 0.1 Basophils # 0.0 Nucleated Red 0.0 Blood Cells # Sodium Level 146 H Potassium Level 3.5 Chloride Level 100 # Carbon Dioxide 38 #H Level Anion Gap 8 Blood Urea 46 #H Nitrogen Creatinine 0.70 Est Glomerular Filtrat Rate mL/min Glucose Level 80 Calcium Level 7.8 L Phosphorus 2.6 Level Magnesium Level 2.2 Troponin I 0.046 Consultation Date/Type/Reason Admit Date/Time June 14, 2018 Date of Consultation: Jun 15, 2018 Type of Consult cv Reason for Consultation afib . Requesting Provider: ISAIAH CANDELARIO of Present Illness Interventional cardiology consultation note Chief complaint: Hypotension and fever Reason for consult: Arrhythmia, sick sinus syndrome with some post permanent pacemaker, proximal atrial fibrillation History of present illness: Thank you for this referral. History was obtained from discussion with the family and the staff and physicians. Patient's old records were extensively reviewed. Patient also very well-known to me from office visits This is a pleasant 87-year-old female with multiple complicated medical history who has had more complicated recent course. Patient has recently been admitted to the hospital with respiratory failure and pneumonia required to be intubation and had to be trach and PEG. Patient was at [facility] and was transferred to rehab. However yesterday was brought back because of fever and hypotension. Patient was noted to be in shock and received multiple boluses of IV fluid. Currently blood pressure has stabilized she is on the vent again and a 50% oxygen. Patient has had history of paroxysmal atrial fibrillation and SVT. She has had a pacemaker placed by myself a few years ago has been functioning no rmally so far. 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 Garcia, [employer]) Hypothyroidism Osteoporosis History of recurrent liver infection status post drainage and multiple antibiotic treatment previously History of enterocutaneous fistula which was apparently closed by Dr. Earl through endoscopy Respiratory failure status with tracheostomy Dysphagia status post PEG placement Encephalopathy Coded Allergies: No Known Allergy (Unverified , 10/07/12) Past Surgical History R femur fracture Dec 2017. Pelvis fracture 2017 R flank cyst surgery at [facility] 2 years ago 2012 permanent pacemaker placement with a [employer] pacemaker Tracheostomy placement PEG placement Closure of enterocutaneous fistula through colonoscopy procedure done few weeks ago Social History Alcohol Use: none Smoking Status: Never smoker Drug Use: none Family history: No reported history of early coronary artery disease Review of system: Patient denies all others except for above-mentioned Past Medical History Medications Current Medications Sodium Chloride 1,000 ml @ 100 mls/hr Q10H IV Last administered on 06/15/18at 03:25; Admin Dose 100 MLS/HR; Start 06/14/18 at 18:25 IV Flush (NS 3 ml) 3 ml PER PROTOCOL IV ; Start 06/14/18 at 18:30 Ondansetron HCl (Zofran Inj) 4 mg Q6H PRN IV NAUSEA AND/OR VOMITING; Start 06/14/18 at 18:30 Morphine Sulfate (morphine) 2 mg Q4H PRN IV SEVERE PAIN LEVEL 7-10 Last administered on 06/14/18at 19:09; Admin Dose 2 MG; Start 06/14/18 at 18:30 Vancomycin HCl (Vanco Iv Per Pharmacy) VANCOMYCIN PER PHARMACY PER PROTOCOL XX ; Start 06/14/18 at 18:30 Piperacillin Sod/ Tazobactam Sod 100 ml @ 200 mls/hr Q6 IVPB Last administered on 06/15/18at 05:12; Admin Dose 200 MLS/HR; Start 06/14/18 at 20:00 Amiodarone HCl (Cordarone) 400 mg BID GTB Last administered on 06/14/18at 20:29; Admin Dose 400 MG; Start 06/14/18 at 21:00 Apixaban (Eliquis) 2.5 mg BID GTB Last administered on 06/14/18at 20:30; Admin Dose 2.5 MG; Start 06/14/18 at 21:00 Ascorbic Acid (Vitamin C) 500 mg BID GTB Last administered on 06/14/18at 20:29; Admin Dose 500 MG; Start 06/14/18 at 21:00 Chlorhexidine Gluconate (Peridex) 15 ml QAM MM ; Start 06/15/18 at 09:00 Cholestyramine Resin (Questran) 1 pkt DAILY GTB ; Start 06/15/18 at 09:00 Lansoprazole (Prevacid) 30 mg DAILY GTB ; Start 06/15/18 at 09:00 Levothyroxine Sodium (Synthroid) 25 mcg BEFORE BREAKFAST GTB Last administered on 06/15/18at 06:24; Admin Dose 25 MCG; Start 06/15/18 at 07:00 Quetiapine Fumarate (Seroquel) 25 mg BID GTB Last administered on 06/14/18at 20:30; Admin Dose 25 MG; Start 06/14/18 at 21:00 Beta Carotene (Ocuvite) 1 tab DAILY GTB ; Start 06/15/18 at 09:00 Miscellaneous Information 1 applic DAILY XX ; Start 06/15/18 at 09:00; Status UNV Vancomycin HCl 250 ml @ 125 mls/hr Q24H IVPB ; Start 06/15/18 at 08:00 Influenza Virus Vaccine Quadrival (Fluzone) 0.5 ml ONCE ONCE IM* ; Start 06/15/18 at 10:00; Stop 06/15/18 at 10:01 Allergies: Coded Allergies: No Known Allergy (Unverified , 10/07/12) Social History Alcohol Use: none Smoking Status: Former smoker Drug Use: none Exam/Review of Systems Vital Signs Vitals Vital Signs Date Temp Pulse Resp B/P (MAP) Pulse Ox O2 O2 Flow FiO2 Time Delivery Rate 06/15/18 77 24 85/61 (69) 100 Mechanical 06:00 Ventilator 06/15/18 50 05:26 06/15/18 98.1 04:00 Intake and Output 06/14/18 06/14/18 06/15/18 1414:59 22:59 06:59 IntakeIntake Total 550 ml 1600 ml OutputOutput Total 850 ml 820 ml BalanceBalance -300 ml 780 ml Exam General: Elderly thin female status post tracheostomy on the vent with 50% oxygen HEENT: NC/AT. pupils are equal. round. NECK: Status post tracheostomy. no stridor. CV: RRR. systolic murmur; no gallop or rubs. PULM: no wheezing. Mild rhonchi. GI: SOFT, NT, ND, no rebound or guarding Extremity: No significant LE edema. no clubbing. neuro: awake and alert, but does not answer my question Psych: calm the moment rectal: deferred EKG was personally reviewed atrial paced rhythm nonspecific T wave abnormalities Chest x-ray shows: Cardiomegaly with calcific atherosclerosis of the aorta. Bibasilar atelectasis or consolidations with small left pleural effusion. Tracheostomy tube and left-sided cardiac pacer in place.. Medications Medications Current Medications Sodium Chloride 1,000 ml @ 100 mls/hr Q10H IV Last administered on 06/15/18at 03:25; Admin Dose 100 MLS/HR; Start 06/14/18 at 18:25 IV Flush (NS 3 ml) 3 ml PER PROTOCOL IV ; Start 06/14/18 at 18:30 Ondansetron HCl (Zofran Inj) 4 mg Q6H PRN IV NAUSEA AND/OR VOMITING; Start 06/14/18 at 18:30 Morphine Sulfate (morphine) 2 mg Q4H PRN IV SEVERE PAIN LEVEL 7-10 Last administered on 06/14/18at 19:09; Admin Dose 2 MG; Start 06/14/18 at 18:30 Vancomycin HCl (Vanco Iv Per Pharmacy) VANCOMYCIN PER PHARMACY PER PROTOCOL XX ; Start 06/14/18 at 18:30 Piperacillin Sod/ Tazobactam Sod 100 ml @ 200 mls/hr Q6 IVPB Last administered on 06/15/18at 05:12; Admin Dose 200 MLS/HR; Start 06/14/18 at 20:00 Amiodarone HCl (Cordarone) 400 mg BID GTB Last administered on 06/14/18at 20:29; Admin Dose 400 MG; Start 06/14/18 at 21:00 Apixaban (Eliquis) 2.5 mg BID GTB Last administered on 06/14/18at 20:30; Admin Dose 2.5 MG; Start 06/14/18 at 21:00 Ascorbic Acid (Vitamin C) 500 mg BID GTB Last administered on 06/14/18at 20:29; Admin Dose 500 MG; Start 06/14/18 at 21:00 Chlorhexidine Gluconate (Peridex) 15 ml QAM MM ; Start 06/15/18 at 09:00 Cholestyramine Resin (Questran) 1 pkt DAILY GTB ; Start 06/15/18 at 09:00 Lansoprazole (Prevacid) 30 mg DAILY GTB ; Start 06/15/18 at 09:00 Levothyroxine Sodium (Synthroid) 25 mcg BEFORE BREAKFAST GTB Last administered on 06/15/18at 06:24; Admin Dose 25 MCG; Start 06/15/18 at 07:00 Quetiapine Fumarate (Seroquel) 25 mg BID GTB Last administered on 06/14/18at 20:30; Admin Dose 25 MG; Start 06/14/18 at 21:00 Beta Carotene (Ocuvite) 1 tab DAILY GTB ; Start 06/15/18 at 09:00 Miscellaneous Information 1 applic DAILY XX ; Start 06/15/18 at 09:00; Status UNV Vancomycin HCl 250 ml @ 125 mls/hr Q24H IVPB ; Start 06/15/18 at 08:00 Influenza Virus Vaccine Quadrival (Fluzone) 0.5 ml ONCE ONCE IM* ; Start 06/15/18 at 10:00; Stop 06/15/18 at 10:01 MARLENA GARCIA MD Jun 15, 2018 07:38
[2018-06-15] MEDS ORDERED: POTASSIUM CHLORIDE 20 MEQ POWDER FOR ORAL SOLN GTB ONE (08:00)
[2018-06-15] MEDS: VANCOMYCIN 1 GM 250 ML IVPB SCH (08:06)
[2018-06-15] MEDS: ASCORBIC ACID 500 MG TAB GTB SCH ×2 (08:45→20:08)
[2018-06-15] MEDS: APIXABAN 5 MG TABLET GTB SCH ×2 (08:45→20:08)
[2018-06-15] MEDS: BETA CAROTENE/VIT C/E/MIN TAB GTB SCH (08:45)
[2018-06-15] MEDS: CHLORHEXIDINE GLUCONATE 15 ML UD CUP MM SCH (08:45)
[2018-06-15] MEDS: QUETIAPINE 25 MG TAB GTB SCH ×2 (08:45→20:08)
[2018-06-15] MEDS: CHOLESTYRAMINE 4 GM PACKET GTB SCH (08:46)
[2018-06-15] MEDS: AMIODARONE 200 MG TAB GTB SCH ×2 (08:46→20:09)
[2018-06-15] MEDS ORDERED: LANSOPRAZOLE 30 MG CAP GTB SCH (09:00)
[2018-06-15] MEDS ORDERED: MUPIROCIN CALCIUM XX SCH (09:00)
[2018-06-15] MEDS ORDERED: INFLUENZA VIRUS VACCINE 0.5 ML (DISPENSING) IM* ONE (10:00)
--- NOTE | 2018-06-15 11:06 | CONS ---
DATE OF ADMISSION: 06/14/2018 DATE OF CONSULTATION: REASON FOR CONSULTATION: Ventilator management. Thank you, Dr. De La Torre, for this consultation. HISTORY OF PRESENT ILLNESS: This is an unfortunate 87-year-old lady, vent-dependent respiratory fail ure, recent prolonged admission at [facility], transferred from [facility], [facility], where she was experiencing worsening shortness of breath, orthopnea, PND, was brought here for further evaluation, found to be hypotensive requiring new aggressive volume resusci tation. Since that time, her blood pressure is improved and at no point does she require vasopressor support. Few further details are available. PAST MEDICAL HISTORY: 1. Vent dependent respiratory failure. 2. Recurrent sepsis. 3. Hypothyroidism. 4. History of atrial fibrillation with pacemaker. 5. History of renal insufficiency. MEDICATIONS: Per chart. ALLERGIES: None. SOCIAL HISTORY: She is a nonsmoker, no alcohol, no history of drug use. FAMILY HISTORY: Noncontributory. SYSTEMS REVIEW: A 12-point review of systems currently unable to perform. PHYSICAL EXAMINATION: GENERAL: Elderly-appearing lady on mechanical ventilation via tracheostomy. VITAL SIGNS: Temperature 98, pulse is 71, blood pressure 106/65, O2 saturation 96%, FIO2 of 50%. NECK: Trach site clean and intact. CARDIAC: S1, S2, no added sounds or murmurs. CHEST: Diminished air entry bilaterally. ABDOMEN: Soft, nontender. No guarding or rebound. EXTREMITIES: No cyanosis, clubbing, edema. NEUROLOGIC: Generalized weakness. LABORATORY DATA: White count 8.6, hemoglobin 8.1, platelets of 145. BUN 46, creatinine 0.7. Lactic acid initially 2.3, now 2.0. Initial arterial blood gas demonstrated a contraction alkalosis. IMPRESSION AND PLAN: 1. Likely dehydration with hypotension, now improving with volume resuscitation. 2. Resolving contraction alkalosis. 3. Chronic respiratory failure. 4. Continue sepsis screen, although currently negative. 5. Consider de-escalation of antibiotics soon. His cultures are negative. Dictated By: PATTI WALLACE MD SV/HECTOR Conf#: [id number] DID#: [id number] CC: ISAIAH DE LA TORRE MD;*EndCC*
--- NOTE | 2018-06-15 12:57 | CONS ---
DATE OF ADMISSION: 06/14/2018 DATE OF CONSULTATION: 06/15/2018 TYPE OF CONSULTATION: Infectious disease. REASON FOR CONSULTATION: Antibiotic management. HISTORY OF PRESENT ILLNESS: Morgan Agustin is an 87-year-old female who comes in with increased leth argy and low blood pressure. She was given 500 mL of IV fluids. We will do the blood pressure as leon torrez was put on a ventilator about 2 days ago. Usually, she is on a T-piece. Her past problems include: 1. Chronic respiratory failure. 2. Status post tracheostomy. 3. Dyslipidemia. 4. Coronary artery disease. 5. Dementia. 6. Interstitial lung disease. 7. History of atrial fibrillation. 8. Pacemaker placement. 9. CHF. 10. Hypertension. 11. Hypothyroidism. 12. Anemia. 13. History of tachybrady syndrome. 14. She has right thigh with metal surgery. PAST MEDICAL HISTORY: As outlined. SOCIAL HISTORY: She does not smoke, drink or abuse drugs. ALLERGIES: NONE TO PENICILLIN, SULFA OR FOODS. MEDICATIONS: Per chart. REVIEW OF SYSTEMS: As per HPI. PHYSICAL EXAMINATION: GENERAL: She is awake, responsive, in no acute distress. VITAL SIGNS: T-max 100.4, blood pressure is 82/62. SKIN: Without generalized rash. HEENT: Within normal limits. NECK: Supple. LYMPH NODES: None palpable. CHEST: Decreased breath sounds at the bases. HEART: Irregularly irregular rhythm. ABDOMEN: Soft, nontender without organosplenomegaly or masses. EXTREMITIES: Without cyanosis, clubbing or edema. RECTAL AND GENITAL: Deferred. NEUROLOGIC: No focal neurological abnormality. ANCILLARY LABORATORY DATA: White count 10.7, H and H of 8.5 and 30.8, platelet count is 197,000. BU N and creatinine is 61/0.82, glucose of 105. Her chloride was up to . Urine is 1+ leukocyte es terase, 23 white cells per high powered field. As noted, her white count was 10.7 with 71 polys. 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 She has chronic appea ring microvascular ischemic changes of the supratentorial white matter with chronic appearing cerebel lar infarcts. Chest x-ray shows tracheostomy and left-sided cardiac pacemaker, cardiomegaly with ath erosclerosis, bibasilar atelectasis and consolidation with small left pleural effusion. The patient was placed on vancomycin and Zosyn because of the infiltrates in her lung and respiratory distress. We will continue her on current therapy. She was seen also by Dr. Witt who noted vent ilator dependent respiratory failure, recent prolonged admission at [facility], transferred from intermediate facility, recurrent sepsis, hypothyroidism, atrial fibrillation with pacemaker, callie l insufficiency. IMPRESSION: Likely dehydration with hypotension resolving, contraction alkalosis, chronic respirator y failure. Continue sepsis screen. Consider de-escalation of antibiotics soon once cultures are neg ative. I concur with that outlook. I will dictate my findings to the hospitalist and to Dr. Witt . Dictated By: SEBASTIAN SHORT MD, JD/NTS Conf#: [id number] DID#: [id number] CC: PATTI WITT MD; ISAIAH CANDELARIO MD;*End*
--- NOTE | 2018-06-15 14:19 | PN ---
Date/Time of Note Date/Time of Note DATE: 06/15/18 TIME: 14:15 Assessment/Plan VTE Prophylaxis Risk score (from Nsg)>0 risk: 10 Pharmacological prophylaxis: apixaban Lines/Catheters IV Catheter Type (from Nrsg): Saline Lock Assessment/Plan Hospital Course 1. Septic shock secondary to UTI-improved Broad-spectrum antibiotics with vancomycin and Zosyn IV fluids Downgrade to telemetry ID consultation obtained Monitor lactic acid Follow-up on cultures 2. Chronic respiratory failure secondary to CHF and pneumonia status post tr acheostomy Continue vent support Pulmonology consultation appreciated 3. Hypothyroidism Continue home meds 4. A. fib status post pacemaker placement Continue anticoagulation Cardiology consultation appreciated 5. Normocytic anemia likely secondary to chronic disease Monitor 6. Metabolic alkalosis likely secondary to contraction IV fluids 7. Azotemia likely secondary to dehydration IV fluids 8. 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 Patients supervisor patching has been consulted Prophylaxis: Eliquis DC planning: Anticipate DC back to subacute facility in the next several days Result Diagram: 06/15/18 0431 06/15/18 0432 Results 24hrs Laboratory Tests Test 06/14/18 14:30 06/14/18 15:18 06/14/18 17:15 06/15/18 04:31 Blood Gas Blood arterial Blood arterial Specimen Source Arterial Blood 06/14/2018 2:25: 06/14/2018 5:26: Date Drawn 55 PM 32 PM Arterial Blood 7.586 *H 7.625 *H pH (Temp corrected) Arterial Blood 54.0 H 44.6 pCO2 (Temp correct) Arterial Blood 75.7 L 67.5 L pO2 (Temp corrected) Arterial Blood 50.2 *H 45.3 *H HCO3 Arterial Blood 25.4 H 22.0 H Base Excess Arterial Blood 96.6 96.0 Oxygen Saturatio n Rusty Test ACCEPTAB ACCEPTAB Arterial Blood Right Radial Right Radial Gas Puncture Site Arterial 0.5 0.3 Blood Carboxyhem oglobin Arterial Blood 0.2 0.3 Methemoglobin Blood Gas A-a O2 147.4 H 166.4 H Differential Oxyhemoglobin 95.9 95.4 Percent Blood Gas 37.0 37.0 Temperature Blood Gas 14.0 18.0 Respiration Rate Blood Gas Actual 14 18 Respiration Rate Blood Gas VENT - AC VENT - AC Modality FiO2 40.0 40.0 Blood Gas Tidal 450.0 450.0 Volume Blood Gas Low 5.0 5.0 PEEP Setting Blood Gas DR TON CAMILO Critical Value Read Back Blood Gas TM MDA Notified Whom Blood Gas 06/14/2018 2:35: 06/14/2018 5:31: Notified Time 42 PM 19 PM Lactic Acid 2.3 *H Level White Blood 8.6 Count Red Blood Count 3.31 L Hemoglobin 8.1 L Hematocrit 28.4 L Mean Corpuscular 85.8 Volume Mean Corpuscular 24.5 L Hemoglobin Mean Corpuscular 28.5 L Hemoglobin Nubia nt Red Cell 17.3 H Distribution Width Platelet Count 145 # Mean Platelet 11.6 H Volume Immature 0.500 H Granulocytes % Neutrophils % 75.1 Lymphocytes % 16.1 Monocytes % 6.9 Eosinophils % 0.9 Basophils % 0.5 Nucleated Red 0.0 Blood Cells % Immature 0.040 H Granulocytes # Neutrophils # 6.5 Lymphocytes # 1.4 Monocytes # 0.6 Eosinophils # 0.1 Basophils # 0.0 Nucleated Red 0.0 Blood Cells # Test 06/15/18 04:32 06/15/18 07:00 Sodium Level 146 H Potassium Level 3.5 Chloride Level 100 # Carbon Dioxide 38 #H Level Anion Gap 8 Blood Urea 46 #H Nitrogen Creatinine 0.70 Est Glomerular Filtrat Rate mL/min Glucose Level 80 Lactic Acid 2.0 Level Calcium Level 7.8 L Phosphorus Level 2.6 Magnesium Level 2.2 Troponin I 0.046 Blood Gas Blood arterial Specimen Source Arterial Blood 06/15/2018 8:45: Date Drawn 20 AM Arterial Blood 7.455 H pH (Temp corrected) Arterial Blood 58.4 H pCO2 (Temp correct) Arterial Blood 134.4 H pO2 (Temp corrected) Arterial Blood 40.1 *H HCO3 Arterial Blood 14.5 H Base Excess Arterial Blood 98.6 Oxygen Saturatio n Rusty Test ACCEPTAB Arterial Blood Right Radial Gas Puncture Site Arterial 0.7 Blood Carboxyhem oglobin Arterial Blood 0.4 Methemoglobin Blood Gas A-a O2 156.4 H Differential Oxyhemoglobin 97.5 Percent Blood Gas 37.0 Temperature Blood Gas 12.0 Respiration Rate Blood Gas Actual 12 Respiration Rate Blood Gas VENT - AC Modality FiO2 50.0 Blood Gas Tidal 450.0 Volume Blood Gas Low 5.0 PEEP Setting Blood Gas Mary Anne OROZCO RN Critical Value Read Back Blood Gas Mary Anne DAVIS [employer] Notified Whom Blood Gas 06/15/2018 9:10: Notified Time 01 AM Subjective 24 Hr Interval Summary Subjective hx not possible: pt non-verbal Exam/Review of Systems Vital Signs Vitals Vital Signs Date Temp Pulse Resp B/P (MAP) Pulse Ox O2 O2 Flow FiO2 Time Delivery Rate 06/15/18 73 12:00 06/15/18 97.7 16 98/55 (69) 95 11:38 06/15/18 50 11:00 06/15/18 Mechanical 11:00 Ventilator Intake and Output 06/14/18 06/14/18 06/15/18 1515:00 23:00 07:00 IntakeIntake Total 650 ml 1670 ml OutputOutput Total 970 ml 725 ml BalanceBalance -320 ml 945 ml Exam Constitutional: non-verbal Respiratory: clear to auscultation Cardiovascular: regular rate and rhythm Gastrointestinal: soft; No distended Musculoskeletal: nl extremities to inspection Medications Medications Current Medications IV Flush (NS 3 ml) 3 ml PER PROTOCOL IV ; Start 06/14/18 at 18:30 Ondansetron HCl (Zofran Inj) 4 mg Q6H PRN IV NAUSEA AND/OR VOMITING; Start 06/14/18 at 18:30 Morphine Sulfate (morphine) 2 mg Q4H PRN IV SEVERE PAIN LEVEL 7-10 Last administered on 06/14/18at 19:09; Admin Dose 2 MG; Start 06/14/18 at 18:30 Vancomycin HCl (Vanco Iv Per Pharmacy) VANCOMYCIN PER PHARMACY PER PROTOCOL XX ; Start 06/14/18 at 18:30 Piperacillin Sod/ Tazobactam Sod 100 ml @ 200 mls/hr Q6 IVPB Last administered on 06/15/18at 05:12; Admin Dose 200 MLS/HR; Start 06/14/18 at 20:00 Amiodarone HCl (Cordarone) 400 mg BID GTB Last administered on 06/15/18at 08:46; Admin Dose 400 MG; Start 06/14/18 at 21:00 Apixaban (Eliquis) 2.5 mg BID GTB Last administered on 06/15/18at 08:45; Admin Dose 2.5 MG; Start 06/14/18 at 21:00 Ascorbic Acid (Vitamin C) 500 mg BID GTB Last administered on 06/15/18 08:45; Admin Dose 500 MG; Start 06/14/18 at 21:00 Chlorhexidine Gluconate (Peridex) 15 ml QAM MM Last administered on 06/15/18 08:45; Admin Dose 15 ML; Start 06/15/18 at 09:00 Cholestyramine Resin (Questran) 1 pkt DAILY GTB Last administered on 06/15/18 08:46; Admin Dose 1 PKT; Start 06/15/18 at 09:00 Levothyroxine Sodium (Synthroid) 25 mcg BEFORE BREAKFAST GTB Last administered on 06/15/18 06:24; Admin Dose 25 MCG; Start 06/15/18 at 07:00 Quetiapine Fumarate (Seroquel) 25 mg BID GTB Last administered on 06/15/18at 08:45; Admin Dose 25 MG; Start 06/14/18 at 21:00 Beta Carotene (Ocuvite) 1 tab DAILY GTB Last administered on 06/15/18 08:45; Admin Dose 1 TAB; Start 06/15/18 at 09:00 Vancomycin HCl 250 ml @ 125 mls/hr Q24H IVPB Last administered on 06/15/18 08:06; Admin Dose 125 MLS/HR; Start 06/15/18 at 08:00 Pantoprazole (Protonix Iv) 40 mg DAILY@06 IV ; Start 06/16/18 at 06:00 Mupirocin (Bactroban) 1 applic DAILY TOP ; Start 06/15/18 at 12:00 ISAIAH CANDELARIO Jun 15, 2018 14:19
[2018-06-15] MEDS: MUPIROCIN 2% 22 GM OINT TOP SCH (17:53)
[2018-06-16] VITALS (25 sets, daily range): BP systolic 97–131; BP diastolic 52–68; PULSE 69–77; RESP 13–20
[2018-06-16] MEDS: PANTOPRAZOLE 40 MG INJ IV SCH (05:31)
[2018-06-16] MEDS: PIPER-TAZO 3.375 GM IV (PMX) 100 ML IVPB SCH (05:31)
[2018-06-16] MEDS: LEVOTHYROXINE 25 MCG TAB GTB SCH (06:20)
--- NOTE | 2018-06-16 08:35 | CONS ---
Date/Time of Note Date/Time of Note DATE: 06/16/18 TIME: 08:33 Consult Date/Type/Reason Admit Date/Time Jun 14, 2018 at 17:13 Initial Consult Date 06/15/18 Requesting Provider: ISAIAH CANDELARIO Subjective Interventional cardiology follow-up progress note Subjective: Case discussed with the staff and telemetry was reviewed. Patient remains mostly in atrial paced rhythm. No more episode of atrial fibrillation Patient started with tracheostomy on the vent and does not answer my question Objective: General: Elderly thin female status post tracheostomy on the vent with 30% oxygen HEENT: NC/AT. pupils are equal. round. NECK: Status post tracheostomy. no stridor. CV: RRR. systolic murmur; no gallop or rubs. PULM: no wheezing. Mild rhonchi. GI: SOFT, NT, ND, no rebound or guarding Extremity: No significant LE edema. no clubbing. neuro: awake and appears alert, but does not answer my question Psych: calm the moment rectal: deferred EKG was personally reviewed atrial paced rhythm nonspecific T wave abnormalities Chest x-ray shows: Cardiomegaly with calcific atherosclerosis of the aorta. Bibasilar atelectasis or consolidations with small left pleural effusion. Tracheostomy tube and left-sided cardiac pacer in place.. Objective Vital Signs Date Temp Pulse Resp B/P (MAP) Pulse Ox O2 O2 Flow FiO2 Time Delivery Rate 06/16/18 97.7 72 18 97/52 (67) 98 07:54 06/16/18 30 05:15 06/16/18 Mechanical 04:05 Ventilator Intake and Output 06/15/18 06/15/18 06/16/18 1515:00 23:00 07:00 IntakeIntake Total 460 ml 360 ml 680 ml OutputOutput Total 125 ml 350 ml 500 ml BalanceBalance 335 ml 10 ml 180 ml Results/Medications Result Diagram: 06/15/18 0431 06/15/18 0432 Results 24 hrs Laboratory Tests Test 06/16/18 06:56 White Blood Count Pending Red Blood Count Pending Hemoglobin Pending Hematocrit Pending Mean Corpuscular Volume Pending Mean Corpuscular Hemoglobin Pending Mean Corpuscular Hemoglobin Concent Pending Red Cell Distribution Width Pending Platelet Count Pending Mean Platelet Volume Pending Medications Current Medications IV Flush (NS 3 ml) 3 ml PER PROTOCOL IV ; Start 06/14/18 at 18:30 Ondansetron HCl (Zofran Inj) 4 mg Q6H PRN IV NAUSEA AND/OR VOMITING; Start 06/14/18 at 18:30 Morphine Sulfate (morphine) 2 mg Q4H PRN IV SEVERE PAIN LEVEL 7-10 Last administered on 06/14/18 19:09; Admin Dose 2 MG; Start 06/14/18 at 18:30 Vancomycin HCl (Vanco Iv Per Pharmacy) VANCOMYCIN PER PHARMACY PER PROTOCOL XX ; Start 06/14/18 at 18:30 Piperacillin Sod/ Tazobactam Sod 100 ml @ 200 mls/hr Q6 IVPB Last administered on 06/16/18 05:31; Admin Dose 200 MLS/HR; Start 06/14/18 at 20:00 Amiodarone HCl (Cordarone) 400 mg BID GTB Last administered on 06/15/18 20:09; Admin Dose 400 MG; Start 06/14/18 at 21:00 Apixaban (Eliquis) 2.5 mg BID GTB Last administered on 06/15/18 20:08; Admin Dose 2.5 MG; Start 06/14/18 at 21:00 Ascorbic Acid (Vitamin C) 500 mg BID GTB Last administered on 06/15/18 20:08; Admin Dose 500 MG; Start 06/14/18 at 21:00 Chlorhexidine Gluconate (Peridex) 15 ml QAM MM Last administered on 06/15/18 08:45; Admin Dose 15 ML; Start 06/15/18 at 09:00 Cholestyramine Resin (Questran) 1 pkt DAILY GTB Last administered on 06/15/18 08:46; Admin Dose 1 PKT; Start 06/15/18 at 09:00 Levothyroxine Sodium (Synthroid) 25 mcg BEFORE BREAKFAST GTB Last administered on 06/16/18 06:20; Admin Dose 25 MCG; Start 06/15/18 at 07:00 Quetiapine Fumarate (Seroquel) 25 mg BID GTB Last administered on 06/15/18 20:08; Admin Dose 25 MG; Start 06/14/18 at 21:00 Beta Carotene (Ocuvite) 1 tab DAILY GTB Last administered on 1/16/19at 08:45; Admin Dose 1 TAB; Start 06/15/18 at 09:00 Vancomycin HCl 250 ml @ 125 mls/hr Q24H IVPB Last administered on 06/15/18at 08:06; Admin Dose 125 MLS/HR; Start 06/15/18 at 08:00 Pantoprazole (Protonix Iv) 40 mg DAILY@06 IV Last administered on 06/16/18at 05:31; Admin Dose 40 MG; Start 06/16/18 at 06:00 Mupirocin (Bactroban) 1 applic DAILY TOP Last administered on 06/15/18at 17:53; Admin Dose 1 APPLIC; Start 06/15/18 at 12:00 Assessment/Plan Chief Complaint/Hosp Course 1. Septic shock 2. Paroxysmal atrial fibrillation and P supraventricular tachycardia 3. Respiratory failure status post tracheostomy now back on the vent 4. Sick sinus syndrome status post permanent pacemaker 5. Urinary tract infection and possible pneumonia 6. History of congestive heart failure/diastolic heart failure 7. History of enterocutaneous fistula and liver disease 8. Dysphagia status post PEG placement 9. Encephalopathy 10. Lactic acidosis Recommendations: Patient has already been started on Zosyn. Antibiotic management as per ID recommendation Eliquis will be continued as long as no active bleeding is noted I will continue with amiodarone at the current dose for now and will decrease the dose slowly as long as she remains in sinus or A paced rhythm Vent support to be continued to be managed by pulmonary Avoid fluid overload Nutritional support to be resumed Continue GI prophylaxis as well Electrolytes including potassium to be replaced as needed basis TSH has been ordered. Results still pending Thank you for his referral. We will continue to follow along with you MARLENA MCKEON MD LOCATED WITHIN [facility] MARLENA MCKEON MD Jun 16, 2018 08:35
--- NOTE | 2018-06-16 08:54 | CONS ---
Date/Time of Note Date/Time of Note DATE: 06/16/18 TIME: 08:48 Assessment/Plan Assessment/Plan Hospital Course GI follow up pt admit with uti sepsis. previous colocutanoeus fistula closed endoscopically with Oves[place] clip, samantha by Dr Cohen PE RUQ bandage dry. examined area for induration/fluctuance with gently pressure, stool expressed, streamed from fistula. gentle pressure again fistula dry a/p rebandage fistula, no evidence of cellulitis abd benign, doubt any inter drainage. keep clean and dry, hopefully with time will seal. communicated findingsto Dr Earl Result Diagram: 06/15/18 0431 06/15/18 0432 Results 24hrs Laboratory Tests Test 06/16/18 06:56 White Blood Count Pending Red Blood Count Pending Hemoglobin Pending Hematocrit Pending Mean Corpuscular Volume Pending Mean Corpuscular Hemoglobin Pending Mean Corpuscular Hemoglobin Concent Pending Red Cell Distribution Width Pending Platelet Count Pending Mean Platelet Volume Pending Consultation Date/Type/Reason Admit Date/Time Jun 14, 2018 at 17:13 Initial Consult Date 06/15/18 Type of Consult follow up Requesting Provider: ISAIAH CANDELARIO Exam/Review of Systems Vital Signs Vitals Vital Signs Date Temp Pulse Resp B/P (MAP) Pulse Ox O2 O2 Flow FiO2 Time Delivery Rate 06/16/18 97.7 72 18 97/52 (67) 98 07:54 06/16/18 30 05:15 06/16/18 Mechanical 04:05 Ventilator Intake and Output 06/15/18 06/15/18 06/16/18 1515:00 23:00 07:00 IntakeIntake Total 460 ml 360 ml 680 ml OutputOutput Total 125 ml 350 ml 500 ml BalanceBalance 335 ml 10 ml 180 ml Medications Medications Current Medications IV Flush (NS 3 ml) 3 ml PER PROTOCOL IV ; Start 06/14/18 at 18:30 Ondansetron HCl (Zofran Inj) 4 mg Q6H PRN IV NAUSEA AND/OR VOMITING; Start 06/14/18 at 18:30 Morphine Sulfate (morphine) 2 mg Q4H PRN IV SEVERE PAIN LEVEL 7-10 Last administered on 06/14/18at 19:09; Admin Dose 2 MG; Start 06/14/18 at 18:30 Vancomycin HCl (Vanco Iv Per Pharmacy) VANCOMYCIN PER PHARMACY PER PROTOCOL XX ; Start 06/14/18 at 18:30 Piperacillin Sod/ Tazobactam Sod 100 ml @ 200 mls/hr Q6 IVPB Last administered on 06/16/18 05:31; Admin Dose 200 MLS/HR; Start 06/14/18 at 20:00 Amiodarone HCl (Cordarone) 400 mg BID GTB Last administered on 06/15/18 20:09; Admin Dose 400 MG; Start 06/14/18 at 21:00 Apixaban (Eliquis) 2.5 mg BID GTB Last administered on 06/15/18 20:08; Admin Dose 2.5 MG; Start 06/14/18 at 21:00 Ascorbic Acid (Vitamin C) 500 mg BID GTB Last administered on 06/15/18at 20:08; Admin Dose 500 MG; Start 06/14/18 at 21:00 Chlorhexidine Gluconate (Peridex) 15 ml QAM MM Last administered on 06/15/18at 0 8:45; Admin Dose 15 ML; Start 06/15/18 at 09:00 Cholestyramine Resin (Questran) 1 pkt DAILY GTB Last administered on 06/15/18 08:46; Admin Dose 1 PKT; Start 06/15/18 at 09:00 Levothyroxine Sodium (Synthroid) 25 mcg BEFORE BREAKFAST GTB Last administered on 06/16/18 06:20; Admin Dose 25 MCG; Start 06/15/18 at 07:00 Quetiapine Fumarate (Seroquel) 25 mg BID GTB Last administered on 06/15/18 20 :08; Admin Dose 25 MG; Start 06/14/18 at 21:00 Beta Carotene (Ocuvite) 1 tab DAILY GTB Last administered on 06/15/18 08:45; Admin Dose 1 TAB; Start 06/15/18 at 09:00 Vancomycin HCl 250 ml @ 125 mls/hr Q24H IVPB Last administered on 06/15/18 08:06; Admin Dose 125 MLS/HR; Start 06/15/18 at 08:00 Pantoprazole (Protonix Iv) 40 mg DAILY@06 IV Last administered on 06/16/18 05:31; Admin Dose 40 MG; Start 06/16/18 at 06:00 Mupirocin (Bactroban) 1 applic DAILY TOP Last administered on 06/15/18at 17:53; Admin Dose 1 APPLIC; Start 06/15/18 at 12:00 VANESSA ESTRELLA MD Jun 16, 2018 08:54
[2018-06-16] MEDS: CHLORHEXIDINE GLUCONATE 15 ML UD CUP MM SCH (09:30)
[2018-06-16] MEDS: BETA CAROTENE/VIT C/E/MIN TAB GTB SCH (09:30)
[2018-06-16] MEDS: QUETIAPINE 25 MG TAB GTB SCH ×2 (09:30→20:15)
[2018-06-16] MEDS: VANCOMYCIN 1 GM 250 ML IVPB SCH (09:30)
[2018-06-16] MEDS: APIXABAN 5 MG TABLET GTB SCH ×2 (09:30→20:15)
[2018-06-16] MEDS: CHOLESTYRAMINE 4 GM PACKET GTB SCH (09:30)
[2018-06-16] MEDS: AMIODARONE 200 MG TAB GTB SCH ×2 (09:31→20:14)
[2018-06-16] MEDS: ASCORBIC ACID 500 MG TAB GTB SCH ×2 (09:31→20:14)
[2018-06-16] MEDS: MUPIROCIN 2% 22 GM OINT TOP SCH (09:32)
--- NOTE | 2018-06-16 09:32 | CONS ---
Date/Time of Note Date/Time of Note DATE: 06/16/18 TIME: 09:29 Assessment/Plan Assessment/Plan Assessment/Plan Ventilator setting; AC of 12, tidal volume 450, PEEP of 5, 30% FiO2. Assessment recommendations; 1. Patient with history of chronic respiratory failure, and VDR F and chronic encephalopathy admitted for hypotension likely due to intravascular volume depletion with significant hemodynamic improvement after hydration. 2. UTI with E. coli. Currently on broad-spectrum antimicrobial coverage. 3. History of cardiac arrhythmia, status post pacemaker in the past. 4. Mild hypercapnia. 5. Interstitial lung disease. 6. Anemia and thrombocytopenia. Continue current supportive care. De-escalate antibiotics. I would suggest switching the patient to Levaquin. Recommend discharge to rehab center. Overa ll prognosis remains poor. Result Diagram: 06/16/18 0656 06/16/18 0656 Results 24hrs Laboratory Tests Test 06/16/18 06:56 White Blood Count 12.8 #H Red Blood Count 3.32 L Hemoglobin 7.9 L Hematocrit 27.7 L Mean Corpuscular Volume 83.4 Mean Corpuscular Hemoglobin 23.8 L Mean Corpuscular Hemoglobin Concent 28.5 L Red Cell Distribution Width 17.9 H Platelet Count 193 # Mean Platelet Volume 12.6 H Immature Granulocytes % 0.500 H Neutrophils % 85.4 H Lymphocytes % 9.5 L Monocytes % 4.1 Eosinophils % 0.3 Basophils % 0.2 Nucleated Red Blood Cells % 0.0 Immature Granulocytes # 0.060 H Neutrophils # 10.9 H Lymphocytes # 1.2 Monocytes # 0.5 Eosinophils # 0.0 Basophils # 0.0 Nucleated Red Blood Cells # 0.0 Sodium Level 144 Potassium Level 3.4 L Chloride Level 105 Carbon Dioxide Level 35 H Anion Gap 4 L Blood Urea Nitrogen 30 #H Creatinine 0.65 Est Glomerular Filtrat Rate mL/min Glucose Level 122 # Calcium Level 8.5 Magnesium Level 2.2 Total Bilirubin 0.1 L Direct Bilirubin 0.00 Indirect Bilirubin 0.1 Aspartate Amino Transf (AST/SGOT) 69 H Alanine Aminotransferase (ALT/SGPT) 54 Alkaline Phosphatase 114 B-Type Natriuretic Peptide 747 H Total Protein 5.9 L Albumin 2.5 L Globulin 3.40 H Albumin/Globulin Ratio 0.73 Thyroid Stimulating Hormone (TSH) Pending Digoxin Level < 0.4 L Consultation Date/Type/Reason Admit Date/Time Jun 14, 2018 at 17:13 Initial Consult Date 06/15/18 Type of Consult Pulmonary Reason for Consultation Patient's condition remains stable. Has remained hemodynamically stable. General exam; elderly female, on ventilator via tracheostomy, awake but noncommu nicative. Currently in no distress. Requesting Provider: ISAIAH CANDELARIO Exam/Review of Systems Vital Signs Vitals Vital Signs Date Temp Pulse Resp B/P (MAP) Pulse Ox O2 O2 Flow FiO2 Time Delivery Rate 06/16/18 97.7 72 18 97/52 (67) 98 07:54 06/16/18 30 07:20 06/16/18 Mechanical 04:05 Ventilator Intake and Output 06/15/18 06/15/18 06/16/18 1515:00 23:00 07:00 IntakeIntake Total 460 ml 360 ml 680 ml OutputOutput Total 125 ml 350 ml 500 ml BalanceBalance 335 ml 10 ml 180 ml Exam H EENT exam; supple neck, no JVD. No lymphadenopathy. Midline trachea. No thyromegaly. Tracheostomy in place. Insertion site is clean. Patient is edentulous. Pupils are small bilaterally. Chest exam; diminished breath sounds bilaterally. S1-S2 audible, no murmurs. Irregular rhythm. Pacemaker in left chest wall. Abdomen exam; soft, scaphoid. No organomegaly. Nondistended. G-tube in place. Bowel sounds audible. Extremity exam; no peripheral edema. PERIOPERATIVE TECH exam; patient awake but noncommunicative. Medications Medications Current Medications IV Flush (NS 3 ml) 3 ml PER PROTOCOL IV ; Start 06/14/18 at 18:30 Ondansetron HCl (Zofran Inj) 4 mg Q6H PRN IV NAUSEA AND/OR VOMITING; Start 06/14/18 at 18:30 Morphine Sulfate (morphine) 2 mg Q4H PRN IV SEVERE PAIN LEVEL 7-10 Last administered on 06/14/18at 19:09; Admin Dose 2 MG; Start 06/14/18 at 18:30 Vancomycin HCl (Vanco Iv Per Pharmacy) VANCOMYCIN PER PHARMACY PER PROTOCOL XX ; Start 06/14/18 at 18:30 Piperacillin Sod/ Tazobactam Sod 100 ml @ 200 mls/hr Q6 IVPB Last administered on 06/16/18at 05:31; Admin Dose 200 MLS/HR; Start 06/14/18 at 20:00 Amiodarone HCl (Cordarone) 400 mg BID GTB Last administered on 06/15/18 20:09; Admin Dose 400 MG; Start 06/14/18 at 21:00 Apixaban (Eliquis) 2.5 mg BID GTB Last administered on 06/15/18 20:08; Admin Dose 2.5 MG; Start 06/14/18 at 21:00 Ascorbic Acid (Vitamin C) 500 mg BID GTB Last administered on 06/15/18 20:08; Admin Dose 500 MG; Start 06/14/18 at 21:00 Chlorhexidine Gluconate (Peridex) 15 ml QAM MM Last administered on 06/15/18 08:45; Admin Dose 15 ML; Start 06/15/18 at 09:00 Cholestyramine Resin (Questran) 1 pkt DAILY GTB Last administered on 06/15/18 08:46; Admin Dose 1 PKT; Start 06/15/18 at 09:00 Levothyroxine Sodium (Synthroid) 25 mcg BEFORE BREAKFAST GTB Last administered on 06/16/18 06:20; Admin Dose 25 MCG; Start 06/15/18 at 07:00 Quetiapine Fumarate (Seroquel) 25 mg BID GTB Last administered on 06/15/18 20:08; Admin Dose 25 MG; Start 06/14/18 at 21:00 Beta Carotene (Ocuvite) 1 tab DAILY GTB Last administered on 06/15/18 08:45; Admin Dose 1 TAB; Start 06/15/18 at 09:00 Vancomycin HCl 250 ml @ 125 mls/hr Q24H IVPB Last administered on 06/15/18 08:06; Admin Dose 125 MLS/HR; Start 06/15/18 at 08:00 Pantoprazole (Protonix Iv) 40 mg DAILY@06 IV Last administered on 06/16/18 05:31; Admin Dose 40 MG; Start 06/16/18 at 06:00 Mupirocin (Bactroban) 1 applic DAILY TOP Last administered on 06/15/18 17:53; Admin Dose 1 APPLIC; Start 06/15/18 at 12:00 MARI LOPEZ Jun 16, 2018 09:32
[2018-06-16] MEDS ORDERED: POTASSIUM CHLORIDE 20 MEQ POWDER FOR ORAL SOLN GTB ONE (10:30)
--- NOTE | 2018-06-16 12:10 | PN ---
Date/Time of Note Date/Time of Note DATE: 06/16/18 TIME: 12:07 Assessment/Plan VTE Prophylaxis Risk score (from [facility] [place]0 risk: 10 SCD applied (from Ns): Yes Pharmacological prophylaxis: apixaban Lines/Catheters IV Catheter Type (from [facility]): Saline Lock Assessment/Plan Hospital Course 1. Septic shock secondary to UTI-improved Urine culture is growing ESBL E. coli DC vancomycin and Zosyn, now on meropenem ID consultation appreciated IV fluids Monitor lactic acid 2. Chronic respiratory failure secondary to CHF and pneumonia status post tracheostomy Continue vent support Pulmonology consultation appreciated 3. Hypothyroidism Continue home meds 4. A. fib status post pacemaker placement Continue anticoagulation Cardiology consultation appreciated 5. Normocytic anemia likely secondary to chronic disease Monitor 6. Metabolic alkalosis likely secondary to contraction IV fluids 7. Azotemia likely secondary to dehydration IV fluids 8. 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 by Dr Earl GI consultation appreciated Prophylaxis: Eliquis DC planning: Anticipate DC back to subacute facility in the next several days Result Diagram: 06/16/18 0656 06/16/18 0656 Results 24hrs Laboratory Tests Test 06/16/18 06:56 White Blood Count 12.8 #H Red Blood Count 3.32 L Hemoglobin 7.9 L Hematocrit 27.7 L Mean Corpuscular Volume 83.4 Mean Corpuscular Hemoglobin 23.8 L Mean Corpuscular Hemoglobin Concent 28.5 L Red Cell Distribution Width 17.9 H Platelet Count 193 # Mean Platelet Volume 12.6 H Immature Granulocytes % 0.500 H Neutrophils % 85.4 H Lymphocytes % 9.5 L Monocytes % 4.1 Eosinophils % 0.3 Basophils % 0.2 Nucleated Red Blood Cells % 0.0 Immature Granulocytes # 0.060 H Neutrophils # 10.9 H Lymphocytes # 1.2 Monocytes # 0.5 Eosinophils # 0.0 Basophils # 0.0 Nucleated Red Blood Cells # 0.0 Sodium Level 144 Potassium Level 3.4 L Chloride Level 105 Carbon Dioxide Level 35 H Anion Gap 4 L Blood Urea Nitrogen 30 #H Creatinine 0.65 Est Glomerular Filtrat Rate mL/min Glucose Level 122 # Calcium Level 8.5 Magnesium Level 2.2 Total Bilirubin 0.1 L Direct Bilirubin 0.00 Indirect Bilirubin 0.1 Aspartate Amino Transf (AST/SGOT) 69 H Alanine Aminotransferase (ALT/SGPT) 54 Alkaline Phosphatase 114 B-Type Natriuretic Peptide 747 H Total Protein 5.9 L Albumin 2.5 L Globulin 3.40 H Albumin/Globulin Ratio 0.73 Thyroid Stimulating Hormone (TSH) Pending Digoxin Level < 0.4 L Subjective 24 Hr Interval Summary Subjective hx not possible: pt non-verbal Exam/Review of Systems Vital Signs Vitals Vital Signs Date Temp Pulse Resp B/P (MAP) Pulse Ox O2 O2 Flow FiO2 Time Delivery Rate 06/16/18 99.2 71 18 118/58 97 11:42 (78) 06/16/18 30 11:15 06/16/18 Mechanical 04:05 Ventilator Intake and Output 06/15/18 06/15/18 06/16/18 1515:00 23:00 07:00 IntakeIntake Total 460 ml 360 ml 680 ml OutputOutput Total 125 ml 350 ml 500 ml BalanceBalance 335 ml 10 ml 180 ml Exam Constitutional: non-verbal Respiratory: clear to auscultation Cardiovascular: regular rate and rhythm Gastrointestinal: soft; No distended Musculoskeletal: nl extremities to inspection Medications Medications Current Medications IV Flush (NS 3 ml) 3 ml PER PROTOCOL IV ; Start 06/14/18 at 18:30 Ondansetron HCl (Zofran Inj) 4 mg Q6H PRN IV NAUSEA AND/OR VOMITING; Start 06/14/18 at 18:30 Morphine Sulfate (morphine) 2 mg Q4H PRN IV SEVERE PAIN LEVEL 7-10 Last administered on 06/14/18at 19:09; Admin Dose 2 MG; Start 06/14/18 at 18:30 Vancomycin HCl (Vanco Iv Per Pharmacy) VANCOMYCIN PER PHARMACY PER PROTOCOL XX ; Start 06/14/18 at 18:30 Amiodarone HCl (Cordarone) 400 mg BID GTB Last administered on 06/16/18at 09:31; Admin Dose 400 MG; Start 06/14/18 at 21:00 Apixaban (Eliquis) 2.5 mg BID GTB Last administered on 06/16/18at 09:30; Admin Dose 2.5 MG; Start 06/14/18 at 21:00 Ascorbic Acid (Vitamin C) 500 mg BID GTB Last administered on 06/16/18at 09:31; Admin Dose 500 MG; Start 06/14/18 at 21:00 Chlorhexidine Gluconate (Peridex) 15 ml QAM MM Last administered on 06/16/18 09:30; Admin Dose 15 ML; Start 06/15/18 at 09:00 Cholestyramine Resin (Questran) 1 pkt DAILY GTB Last administered on 06/16/18 09:30; Admin Dose 1 PKT; Start 06/15/18 at 09:00 Levothyroxine Sodium (Synthroid) 25 mcg BEFORE BREAKFAST GTB Last administered on 06/16/18 06:20; Admin Dose 25 MCG; Start 06/15/18 at 07:00 Quetiapine Fumarate (Seroquel) 25 mg BID GTB Last administered on 06/16/18 09:30; Admin Dose 25 MG; Start 06/14/18 at 21:00 Beta Carotene (Ocuvite) 1 tab DAILY GTB Last administered on 06/16/18 09:30; Admin Dose 1 TAB; Start 06/15/18 at 09:00 Vancomycin HCl 250 ml @ 125 mls/hr Q24H IVPB Last administered on 06/16/18 09:30; Admin Dose 125 MLS/HR; Start 06/15/18 at 08:00 Pantoprazole (Protonix Iv) 40 mg DAILY@06 IV Last administered on 06/16/18 05:31; Admin Dose 40 MG; Start 06/16/18 at 06:00 Mupirocin (Bactroban) 1 applic DAILY TOP Last administered on 06/16/18 09:32; Admin Dose 1 APPLIC; Start 06/15/18 at 12:00 Meropenem/Sodium Chloride 50 ml @ 100 mls/hr Q12 IVPB ; Start 06/16/18 at 21:00 Nystatin (Nystatin Susp) 5 ml QID PO ; Start 06/16/18 at 13:00 ISAIAH CANDELARIO Jun 16, 2018 12:10
[2018-06-16] MEDS: NYSTATIN SUSP 5 ML CUP PO SCH ×3 (12:37→20:13)
--- NOTE | 2018-06-16 13:30 | CONS ---
Date/Time of Note Date/Time of Note DATE: 06/16/18 TIME: 13:30 Assessment/Plan Assessment/Plan Hospital Course Patient is awake and looks comfortable daughter at bedside no fevers overnight T-max this morning 100.2 WBC 12.8 H&H 7.9 27.7 platelets 193 neutrophils 85.4 BUN 30 creatinine 0.65 Microbiology: Urine culture grew E. coli ESBL blood culture remains negative Indwelling: Trach PEG Henry, left upper extremity PICC line Antimicrobials: Meropenem, vancomycin Physical examination: This is a fragile chronically ill-appearing well-developed elderly woman who is awake in no distress. Head atraumatic normocephalic sclera nonicteric. Neck is supple tracheostomy present. Chest rise symmetrical breath sounds clear. Heart: S1-S2. Abdomen soft bowel sounds present right-sided dressing clean dry and intact. Extremities without cyanosis, trace edema Assessment: 1. Sepsis, present on admission 2. E. coli ESBL UTI 3. Chronic respiratory failure 4. Coronary artery disease status post permanent pacemaker 5. 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 Oral thrush Plan: Patient remained stable she is being seen by pulmonary and gastroenterology teams, she is on appropriate antibiotics, we will will add oral nystatin to the regimen Discussed with daughter at bedside Result Diagram: 06/16/18 0656 06/16/18 0656 Results 24hrs Laboratory Tests Test 06/16/18 06:56 White Blood Count 12.8 #H Red Blood Count 3.32 L Hemoglobin 7.9 L Hematocrit 27.7 L Mean Corpuscular Volume 83.4 Mean Corpuscular Hemoglobin 23.8 L Mean Corpuscular Hemoglobin Concent 28.5 L Red Cell Distribution Width 17.9 H Platelet Count 193 # Mean Platelet Volume 12.6 H Immature Granulocytes % 0.500 H Neutrophils % 85.4 H Lymphocytes % 9.5 L Monocytes % 4.1 Eosinophils % 0.3 Basophils % 0.2 Nucleated Red Blood Cells % 0.0 Immature Granulocytes # 0.060 H Neutrophils # 10.9 H Lymphocytes # 1.2 Monocytes # 0.5 Eosinophils # 0.0 Basophils # 0.0 Nucleated Red Blood Cells # 0.0 Sodium Level 144 Potassium Level 3.4 L Chloride Level 105 Carbon Dioxide Level 35 H Anion Gap 4 L Blood Urea Nitrogen 30 #H Creatinine 0.65 Est Glomerular Filtrat Rate mL/min Glucose Level 122 # Calcium Level 8.5 Magnesium Level 2.2 Total Bilirubin 0.1 L Direct Bilirubin 0.00 Indirect Bilirubin 0.1 Aspartate Amino Transf (AST/SGOT) 69 H Alanine Aminotransferase (ALT/SGPT) 54 Alkaline Phosphatase 114 B-Type Natriuretic Peptide 747 H Total Protein 5.9 L Albumin 2.5 L Globulin 3.40 H Albumin/Globulin Ratio 0.73 Thyroid Stimulating Hormone (TSH) Pending Digoxin Level < 0.4 L Consultation Date/Type/Reason Admit Date/Time Jun 14, 2018 at 17:13 Initial Consult Date 06/15/18 Type of Consult id Requesting Provider: ISAIAH CANDELARIO Exam/Review of Systems Vital Signs Vitals Vital Signs Date Temp Pulse Resp B/P (MAP) Pulse Ox O2 O2 Flow FiO2 Time Delivery Rate 06/16/18 70 14 98 30 13:10 06/16/18 99.2 118/58 11:42 (78) 06/16/18 Mechanical 04:05 Ventilator Intake and Output 06/15/18 06/15/18 06/16/18 1515:00 23:00 07:00 IntakeIntake Total 460 ml 360 ml 680 ml OutputOutput Total 125 ml 350 ml 500 ml BalanceBalance 335 ml 10 ml 180 ml Medications Medications Current Medications IV Flush (NS 3 ml) 3 ml PER PROTOCOL IV ; Start 06/14/18 at 18:30 Ondansetron HCl (Zofran Inj) 4 mg Q6H PRN IV NAUSEA AND/OR VOMITING; Start 06/14/18 at 18:30 Morphine Sulfate (morphine) 2 mg Q4H PRN IV SEVERE PAIN LEVEL 7-10 Last admin istered on 06/14/18at 19:09; Admin Dose 2 MG; Start 06/14/18 at 18:30 Amiodarone HCl (Cordarone) 400 mg BID GTB Last administered on 06/16/18 09:31; Admin Dose 400 MG; Start 06/14/18 at 21:00 Apixaban (Eliquis) 2.5 mg BID GTB Last administered on 06/16/18at 09:30; Admin Dose 2.5 MG; Start 06/14/18 at 21:00 Ascorbic Acid (Vitamin C) 500 mg BID GTB Last administered on 06/16/18at 09:31; Admin Dose 500 MG; Start 06/14/18 at 21:00 Chlorhexidine Gluconate (Peridex) 15 ml QAM MM Last administered on 06/16/18 09:30; Admin Dose 15 ML; Start 06/15/18 at 09:00 Cholestyramine Resin (Questran) 1 pkt DAILY GTB Last administered on 06/16/18 09:30; Admin Dose 1 PKT; Start 06/15/18 at 09:00 Levothyroxine Sodium (Synthroid) 25 mcg BEFORE BREAKFAST GTB Last administered on 06/16/18at 06:20; Admin Dose 25 MCG; Start 06/15/18 at 07:00 Quetiapine Fumarate (Seroquel) 25 mg BID GTB Last administered on 06/16/18 09:30; Admin Dose 25 MG; Start 06/14/18 at 21:00 Beta Carotene (Ocuvite) 1 tab DAILY GTB Last administered on 06/16/18at 09:30; Admin Dose 1 TAB; Start 06/15/18 at 09:00 Pantoprazole (Protonix Iv) 40 mg DAILY@06 IV Last administered on 06/16/18at 05:31; Admin Dose 40 MG; Start 06/16/18 at 06:00 Mupirocin (Bactroban) 1 applic DAILY TOP Last administered on 06/16/18at 09:32; Admin Dose 1 APPLIC; Start 06/15/18 at 12:00 Meropenem/Sodium Chloride 50 ml @ 100 mls/hr Q12 IVPB ; Start 06/16/18 at 21:00 Nystatin (Nystatin Susp) 5 ml QID PO Last administered on 06/16/18at 12:37; Admin Dose 5 ML; Start 06/16/18 at 13:00 IZAIAH GERARD NP Jun 16, 2018 13:30
[2018-06-16] MEDS ORDERED: NYSTATIN SUSP 5 ML CUP PO SCH (17:00)
[2018-06-16] MEDS: MEROPENEM 1 GM/50ML(PMX) 50 ML IVPB SCH (20:14)
[2018-06-17] VITALS (23 sets, daily range): BP systolic 102–132; BP diastolic 54–66; PULSE 70–73; RESP 12–21
[2018-06-17] MEDS: PANTOPRAZOLE 40 MG INJ IV SCH (05:37)
[2018-06-17] MEDS: LEVOTHYROXINE 25 MCG TAB GTB SCH (06:01)
[2018-06-17] MEDS: CHOLESTYRAMINE 4 GM PACKET GTB SCH (09:22)
[2018-06-17] MEDS: CHLORHEXIDINE GLUCONATE 15 ML UD CUP MM SCH (09:22)
[2018-06-17] MEDS: BETA CAROTENE/VIT C/E/MIN TAB GTB SCH (09:22)
[2018-06-17] MEDS: APIXABAN 5 MG TABLET GTB SCH ×2 (09:23→20:52)
[2018-06-17] MEDS: ASCORBIC ACID 500 MG TAB GTB SCH ×2 (09:26→20:52)
[2018-06-17] MEDS: AMIODARONE 200 MG TAB GTB SCH ×2 (09:26→20:53)
[2018-06-17] MEDS: QUETIAPINE 25 MG TAB GTB SCH ×2 (09:26→20:52)
[2018-06-17] MEDS: NYSTATIN SUSP 5 ML CUP PO SCH ×4 (09:27→20:52)
[2018-06-17] MEDS: MUPIROCIN 2% 22 GM OINT TOP SCH (09:28)
--- NOTE | 2018-06-17 09:29 | CONS ---
Date/Time of Note Date/Time of Note DATE: 06/17/18 TIME: 09:26 Assessment/Plan Assessment/Plan Hospital Course 87 yo presents with UTI 1. H/O Colocutanoeus fistula status post closure endoscopically with Ovesco clip by Dr Earl 2. Anemia -retic elevated, iron low, TIBC wnl, percent sat low 3. UTI, ESBL and E. Coli -followed by ID 4. Chronic respiratory failure secondary to CHF and pna -followed by pulm 5. A fib, s/p pacemaker placement, on Eliquis -followed by cardiology Plan: Anemia work up Will monitor HH closely, colonoscopy done 06/07/18. If HH continues to trend down we may consider EGD and/or colon. Keep fistula site clean and dry. Pt is on questran due to diarrhea she was having. If patient does not have a bm we will DC questran. Pt examined and plan of care discussed with Dr. Earl Result Diagram: 06/17/18 0525 06/17/18 0525 Results 24hrs Laboratory Tests Test 06/17/18 05:21 06/17/18 05:25 Absolute Reticulocyte Count 0.115 H Percent Reticulocyte Count 3.6 H Iron Level 17 L Total Iron Binding Capacity 326 Percent Iron Saturation 5 L Ferritin 38.4 Vitamin B12 Level Pending Folate Pending White Blood Count 10.8 Red Blood Count 3.19 L Hemoglobin 7.7 L Hematocrit 26.5 L Mean Corpuscular Volume 83.1 Mean Corpuscular Hemoglobin 24.1 L Mean Corpuscular Hemoglobin Concent 29.1 L Red Cell Distribution Width 18.1 H Platelet Count 191 Mean Platelet Volume 12.6 H Immature Granulocytes % 0.600 H Neutrophils % 80.0 H Lymphocytes % 13.0 L Monocytes % 5.9 Eosinophils % 0.3 Basophils % 0.2 Nucleated Red Blood Cells % 0.0 Immature Granulocytes # 0.070 H Neutrophils # 8.6 H Lymphocytes # 1.4 Monocytes # 0.6 Eosinophils # 0.0 Basophils # 0.0 Nucleated Red Blood Cells # 0.0 Sodium Level 145 H Potassium Level 4.0 Chloride Level 108 Carbon Dioxide Level 34 H Anion Gap 3 L Blood Urea Nitrogen 24 H Creatinine 0.60 Est Glomerular Filtrat Rate mL/min Glucose Level 117 Calcium Level 8.5 Consultation Date/Type/Reason Admit Date/Time Jun 14, 2018 at 17:13 Initial Consult Date 06/15/18 Requesting Provider: ISAIAH CANDELARIO 24 HR Interval Summary Free Text/Dictation Dressing at fistula site is dry and clean and has not been touched since yesterday. No bm through rectum yesterday or today. G tube site clean and dry. No residuals. Tolerating tube feeds. Per RN no evidence of GI bleeding. Afebrile. WBC wnl today. Exam/Review of Systems Vital Signs Vitals Vital Signs Date Temp Pulse Resp B/P (MAP) Pulse Ox O2 O2 Flow FiO2 Time Delivery Rate 06/17/18 71 08:00 06/17/18 99.4 13 120/56 96 07:56 (77) 06/17/18 30 07:30 06/16/18 Mechanical 23:16 Ventilator Exam Head: normocephalic Eyes: PERRL Gastrointestinal: soft, other (dressing clean and dry at fistula site, g tube site clean and dry, abd soft) Medications Medications Current Medications IV Flush (NS 3 ml) 3 ml PER PROTOCOL IV ; Start 06/14/18 at 18:30 Ondansetron HCl (Zofran Inj) 4 mg Q6H PRN IV NAUSEA AND/OR VOMITING; Start 06/14/18 at 18:30 Morphine Sulfate (morphine) 2 mg Q4H PRN IV SEVERE PAIN LEVEL 7-10 Last administered on 06/14/18at 19:09; Admin Dose 2 MG; Start 06/14/18 at 18:30 Amiodarone HCl (Cordarone) 400 mg BID GTB Last administered on 06/16/18at 20:14; Admin Dose 400 MG; Start 06/14/18 at 21:00 Apixaban (Eliquis) 2.5 mg BID GTB Last administered on 06/16/18at 20:15; Admin Dose 2.5 MG; Start 06/14/18 at 21:00 Ascorbic Acid (Vitamin C) 500 mg BID GTB Last administered on 06/16/18at 20:14; Admin Dose 500 MG; Start 06/14/18 at 21:00 Chlorhexidine Gluconate (Peridex) 15 ml QAM MM Last administered on 06/16/18at 09:30; Admin Dose 15 ML; Start 06/15/18 at 09:00 Cholestyramine Resin (Questran) 1 pkt DAILY GTB Last administered on 06/16/18 09:30; Admin Dose 1 PKT; Start 06/15/18 at 09:00 Levothyroxine Sodium (Synthroid) 25 mcg BEFORE BREAKFAST GTB Last administered on 06/17/18 06:01; Admin Dose 25 MCG; Start 06/15/18 at 07:00 Quetiapine Fumarate (Seroquel) 25 mg BID GTB Last administered on 06/16/18 20:15; Admin Dose 25 MG; Start 06/14/18 at 21:00 Beta Carotene (Ocuvite) 1 tab DAILY GTB Last administered on 06/16/18 09:30; Admin Dose 1 TAB; Start 06/15/18 at 09:00 Pantoprazole (Protonix Iv) 40 mg DAILY@06 IV Last administered on 06/17/18at 05:37; Admin Dose 40 MG; Start 06/16/18 at 06:00 Mupirocin (Bactroban) 1 applic DAILY TOP Last administered on 06/16/18 09:32; Admin Dose 1 APPLIC; Start 06/15/18 at 12:00 Meropenem/Sodium Chloride 50 ml @ 100 mls/hr Q12 IVPB Last administered on 06/16/18 20:14; Admin Dose 100 MLS/HR; Start 06/16/18 at 21:00 Nystatin (Nystatin Susp) 5 ml QID PO Last administered on 06/16/18 20:13; Admin Dose 5 ML; Start 06/16/18 at 13:00 THOR PATHAK Jun 17, 2018 09:29
[2018-06-17] MEDS: MEROPENEM 1 GM/50ML(PMX) 50 ML IVPB SCH ×2 (11:04→21:13)
--- NOTE | 2018-06-17 11:38 | CONS ---
Date/Time of Note Date/Time of Note DATE: 06/17/18 TIME: 11:36 Assessment/Plan Assessment/Plan Assessment/Plan Ventilator setting; AC of 12, tidal volume 450, PEEP of 5, 30% FiO2. Assessment recommendations; 1. Patient admitted with sepsis due to UTI currently on appropriate antimicrobial regimen. 2. Interstitial lung disease. 3. Chronic encephalopathy. 4. Chronic atrial fibrillation. 5. VDRF Continue current supportive care. Consider discharge back to rehab center. Overall prognosis is poor. Result Diagram: 06/17/18 0525 06/17/18 0525 Results 24hrs Laboratory Tests Test 06/17/18 05:21 06/17/18 05:25 Absolute Reticulocyte Count 0.115 H Percent Reticulocyte Count 3.6 H Iron Level 17 L Total Iron Binding Capacity 326 Percent Iron Saturation 5 L Ferritin 38.4 Vitamin B12 Level 899 Folate > 20.0 H White Blood Count 10.8 Red Blood Count 3.19 L Hemoglobin 7.7 L Hematocrit 26.5 L Mean Corpuscular Volume 83.1 Mean Corpuscular Hemoglobin 24.1 L Mean Corpuscular Hemoglobin Concent 29.1 L Red Cell Distribution Width 18.1 H Platelet Count 191 Mean Platelet Volume 12.6 H Immature Granulocytes % 0.600 H Neutrophils % 80.0 H Lymphocytes % 13.0 L Monocytes % 5.9 Eosinophils % 0.3 Basophils % 0.2 Nucleated Red Blood Cells % 0.0 Immature Granulocytes # 0.070 H Neutrophils # 8.6 H Lymphocytes # 1.4 Monocytes # 0.6 Eosinophils # 0.0 Basophils # 0.0 Nucleated Red Blood Cells # 0.0 Sodium Level 145 H Potassium Level 4.0 Chloride Level 108 Carbon Dioxide Level 34 H Anion Gap 3 L Blood Urea Nitrogen 24 H Creatinine 0.60 Est Glomerular Filtrat Rate mL/min Glucose Level 117 Calcium Level 8.5 Consultation Date/Type/Reason Admit Date/Time Jun 14, 2018 at 17:13 Initial Consult Date 06/15/18 Type of Consult Pulmonary Requesting Provider: ISAIAH CANDELARIO 24 HR Interval Summary Free Text/Dictation Patient's condition remains stable. Has remained hemodynamically stable. General exam; elderly female, on ventilator via tracheostomy, awake and somewhat responsive. Currently no distress. Exam/Review of Systems Vital Signs Vitals Vital Signs Date Temp Pulse Resp B/P (MAP) Pulse Ox O2 O2 Flow FiO2 Time Delivery Rate 06/17/18 70 14 100 30 11:05 06/17/18 99.4 120/56 07:56 (77) 06/16/18 Mechanical 23:16 Ventilator Exam H EENT exam; supple neck, no JVD. No lymphadenopathy. Midline trachea. No thyromegaly. Tracheostomy in place. Patient is edentulous. No neck masses. Chest exam; diminished but clear breath sounds. S1-S2 audible, no murmurs. Irregular rhythm. Pacemaker in left chest wall. Abdomen exam; soft, scaphoid. No organomegaly. G-tube in place. Bowel sounds audible. Extremity exam; peripheral edema. [employer] exam; patient is awake but noncommunicative. Medications Medications Current Medications IV Flush (NS 3 ml) 3 ml PER PROTOCOL IV ; Start 06/14/18 at 18:30 Ondansetron HCl (Zofran Inj) 4 mg Q6H PRN IV NAUSEA AND/OR VOMITING; Start 06/14/18 at 18:30 Morphine Sulfate (morphine) 2 mg Q4H PRN IV SEVERE PAIN LEVEL 7-10 Last administered on 06/14/18 19:09; Admin Dose 2 MG; Start 06/14/18 at 18:30 Amiodarone HCl (Cordarone) 400 mg BID GTB Last administered on 06/17/18 09:26; Admin Dose 400 MG; Start 06/14/18 at 21:00 Apixaban (Eliquis) 2.5 mg BID GTB Last administered on 06/17/18 09:23; Admin Dose 2.5 MG; Start 06/14/18 at 21:00 Ascorbic Acid (Vitamin C) 500 mg BID GTB Last administered on 06/17/18 09:26; Admin Dose 500 MG; Start 06/14/18 at 21:00 Chlorhexidine Gluconate (Peridex) 15 ml QAM MM Last administered on 06/17/18 09:22; Admin Dose 15 ML; Start 06/15/18 at 09:00 Cholestyramine Resin (Questran) 1 pkt DAILY GTB Last administered on 06/17/18 09:22; Admin Dose 1 PKT; Start 06/15/18 at 09:00 Levothyroxine Sodium (Synthroid) 25 mcg BEFORE BREAKFAST GTB Last administered on 1/18/19at 06:01; Admin Dose 25 MCG; Start 06/15/18 at 07:00 Quetiapine Fumarate (Seroquel) 25 mg BID GTB Last administered on 06/17/18 09:26; Admin Dose 25 MG; Start 06/14/18 at 21:00 Beta Carotene (Ocuvite) 1 tab DAILY GTB Last administered on 06/17/18 09:22; Admin Dose 1 TAB; Start 06/15/18 at 09:00 Pantoprazole (Protonix Iv) 40 mg DAILY@06 IV Last administered on 06/17/18 05:37; Admin Dose 40 MG; Start 06/16/18 at 06:00 Mupirocin (Bactroban) 1 applic DAILY TOP Last administered on 06/17/18 09:28; Admin Dose 1 APPLIC; Start 06/15/18 at 12:00 Meropenem/Sodium Chloride 50 ml @ 100 mls/hr Q12 IVPB Last administered on 06/17/18at 11:04; Admin Dose 100 MLS/HR; Start 06/16/18 at 21:00 Nystatin (Nystatin Susp) 5 ml QID PO Last administered on 06/17/18 09:27; Admin Dose 5 ML; Start 06/16/18 at 13:00 Acetaminophen (Tylenol Liquid) 500 mg Q6H PRN GTB MILD PAIN(1-3)OR ELEVATED TEMP; Start 06/17/18 at 11:00 MARI LOPEZ Jun 17, 2018 11:38
--- NOTE | 2018-06-17 15:40 | CONS ---
Date/Time of Note Date/Time of Note DATE: 06/17/18 TIME: 15:39 Assessment/Plan Assessment/Plan Hospital Course no acute changes, looks comfortable, no fevers Microbiology: Urine culture grew E. coli ESBL blood culture remains negative Indwelling: Trach PEG Henry, left upper extremity PICC line Antimicrobials: Meropenem, vancomycin Physical examination: This is a fragile chronically ill-appearing well-developed elderly woman who is awake in no distress. Head atraumatic normocephalic sclera nonicteric. Neck is supple tracheostomy present. Chest rise symmetrical breath sounds clear. Heart: S1-S2. Abdomen soft bowel sounds present right-sided dressing clean dry and intact. Extremities without cyanosis, trace edema Assessment: 1. Sepsis, present on admission 2. E. coli ESBL UTI 3. Chronic respiratory failure 4. Coronary artery disease status post permanent pacemaker 5. 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 Oral thrush Plan: Patient remained stable, will dc Vanco, continue Merrem, f/u pulmonary and GI rec-s Result Diagram: 06/17/18 0525 06/17/18 0525 Results 24hrs Laboratory Tests Test 06/17/18 05:21 06/17/18 05:25 Absolute Reticulocyte Count 0.115 H Percent Reticulocyte Count 3.6 H Iron Level 17 L Total Iron Binding Capacity 326 Percent Iron Saturation 5 L Ferritin 38.4 Vitamin B12 Level 899 Folate > 20.0 H White Blood Count 10.8 Red Blood Count 3.19 L Hemoglobin 7.7 L Hematocrit 26.5 L Mean Corpuscular Volume 83.1 Mean Corpuscular Hemoglobin 24.1 L Mean Corpuscular Hemoglobin Concent 29.1 L Red Cell Distribution Width 18.1 H Platelet Count 191 Mean Platelet Volume 12.6 H Immature Granulocytes % 0.600 H Neutrophils % 80.0 H Lymphocytes % 13.0 L Monocytes % 5.9 Eosinophils % 0.3 Basophils % 0.2 Nucleated Red Blood Cells % 0.0 Immature Granulocytes # 0.070 H Neutrophils # 8.6 H Lymphocytes # 1.4 Monocytes # 0.6 Eosinophils # 0.0 Basophils # 0.0 Nucleated Red Blood Cells # 0.0 Sodium Level 145 H Potassium Level 4.0 Chloride Level 108 Carbon Dioxide Level 34 H Anion Gap 3 L Blood Urea Nitrogen 24 H Creatinine 0.60 Est Glomerular Filtrat Rate mL/min Glucose Level 117 Calcium Level 8.5 Consultation Date/Type/Reason Admit Date/Time Jun 14, 2018 at 17:13 Initial Consult Date 06/15/18 Type of Consult id Requesting Provider: ISAIAH CANDELARIO Exam/Review of Systems Vital Signs Vitals Vital Signs Date Temp Pulse Resp B/P (MAP) Pulse Ox O2 O2 Flow FiO2 Time Delivery Rate 06/17/18 74 19 97 30 13:10 06/17/18 99.0 120/58 12:19 (78) 06/16/18 Mechanical 23:16 Ventilator Medications Medications Current Medications IV Flush (NS 3 ml) 3 ml PER PROTOCOL IV ; Start 06/14/18 at 18:30 Ondansetron HCl (Zofran Inj) 4 mg Q6H PRN IV NAUSEA AND/OR VOMITING; Start 06/14/18 at 18:30 Morphine Sulfate (morphine) 2 mg Q4H PRN IV SEVERE PAIN LEVEL 7-10 Last administered on 06/14/18at 19:09; Admin Dose 2 MG; Start 06/14/18 at 18:30 Amiodarone HCl (Cordarone) 400 mg BID GTB Last administered on 06/17/18 09:26; Admin Dose 400 MG; Start 06/14/18 at 21:00 Apixaban (Eliquis) 2.5 mg BID GTB Last administered on 06/17/18at 09:23; Admin Dose 2.5 MG; Start 06/14/18 at 21:00 Ascorbic Acid (Vitamin C) 500 mg BID GTB Last administered on 06/17/18 09:26; Admin Dose 500 MG; Start 06/14/18 at 21:00 Chlorhexidine Gluconate (Peridex) 15 ml QAM MM Last administered on 06/17/18 09:22; Admin Dose 15 ML; Start 06/15/18 at 09:00 Cholestyramine Resin (Questran) 1 pkt DAILY GTB Last administered on 06/17/18 09:22; Admin Dose 1 PKT; Start 06/15/18 at 09:00 Levothyroxine Sodium (Synthroid) 25 mcg BEFORE BREAKFAST GTB Last administered on 06/17/18at 06:01; Admin Dose 25 MCG; Start 06/15/18 at 07:00 Quetiapine Fumarate (Seroquel) 25 mg BID GTB Last administered on 06/17/18 09:26; Admin Dose 25 MG; Start 06/14/18 at 21:00 Beta Carotene (Ocuvite) 1 tab DAILY GTB Last administered on 06/17/18 09:22; Admin Dose 1 TAB; Start 06/15/18 at 09:00 Pantoprazole (Protonix Iv) 40 mg DAILY@06 IV Last administered on 06/17/18 05:37; Admin Dose 40 MG; Start 06/16/18 at 06:00 Mupirocin (Bactroban) 1 applic DAILY TOP Last administered on 06/17/18 09:28; Admin Dose 1 APPLIC; Start 06/15/18 at 12:00 Meropenem/Sodium Chloride 50 ml @ 100 mls/hr Q12 IVPB Last administered on 06/17/18at 11:04; Admin Dose 100 MLS/HR; Start 06/16/18 at 21:00 Nystatin (Nystatin Susp) 5 ml QID PO Last administered on 06/17/18at 12:55; Admin Dose 5 ML; Start 06/16/18 at 13:00 Acetaminophen (Tylenol Liquid) 500 mg Q6H PRN GTB MILD PAIN(1-3)OR ELEVATED TEMP; Start 06/17/18 at 11:00 IZAIAH GERARD NP Jun 17, 2018 15:40
--- NOTE | 2018-06-17 17:29 | PN ---
Date/Time of Note Date/Time of Note DATE: 06/17/18 TIME: 17:28 Assessment/Plan VTE Prophylaxis Risk score (from [facility] [place] risk: 14 SCD applied (from [facility] [place] Yes Pharmacological prophylaxis: apixaban Lines/Catheters IV Catheter Type (from [place]): Saline Lock Assessment/Plan Hospital Course 1. Septic shock secondary to UTI-improved Urine culture is growing ESBL E. coli Continue meropenem ID consultation appreciated IV fluids Monitor lactic acid 2. Chronic respiratory failure secondary to CHF and pneumonia status post tracheostomy Continue vent support Pulmonology consultation appreciated 3. Hypothyroidism Continue home meds 4. A. fib status post pacemaker placement Continue anticoagulation Cardiology consultation appreciated 5. Normocytic anemia likely secondary to chronic disease Monitor 6. Metabolic alkalosis likely secondary to contraction IV fluids 7. Azotemia secondary to dehydration-improved with fluids IV fluids 8. 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 by Dr Earl GI consultation appreciated Prophylaxis: Eliquis DC planning: Anticipate DC back to subacute facility in the next 1-2 days once afebrile Result Diagram: 06/17/18 0525 06/17/18 0525 Results 24hrs Laboratory Tests Test 06/17/18 05:21 06/17/18 05:25 06/17/18 15:40 Absolute Reticulocyte Count 0.115 H Percent Reticulocyte Count 3.6 H Iron Level 17 L Total Iron Binding Capacity 326 Percent Iron Saturation 5 L Ferritin 38.4 Vitamin B12 Level 899 Folate > 20.0 H White Blood Count 10.8 Red Blood Count 3.19 L Hemoglobin 7.7 L Hematocrit 26.5 L Mean Corpuscular Volume 83.1 Mean Corpuscular Hemoglobin 24.1 L Mean Corpuscular Hemoglobin Concent 29.1 L Red Cell Distribution Width 18.1 H Platelet Count 191 Mean Platelet Volume 12.6 H Immature Granulocytes % 0.600 H Neutrophils % 80.0 H Lymphocytes % 13.0 L Monocytes % 5.9 Eosinophils % 0.3 Basophils % 0.2 Nucleated Red Blood Cells % 0.0 Immature Granulocytes # 0.070 H Neutrophils # 8.6 H Lymphocytes # 1.4 Monocytes # 0.6 Eosinophils # 0.0 Basophils # 0.0 Nucleated Red Blood Cells # 0.0 Sodium Level 145 H Potassium Level 4.0 Chloride Level 108 Carbon Dioxide Level 34 H Anion Gap 3 L Blood Urea Nitrogen 24 H Creatinine 0.60 Est Glomerular Filtrat Rate mL/min Glucose Level 117 Calcium Level 8.5 Stool Occult Blood NEGATIVE Subjective 24 Hr Interval Summary Subjective hx not possible: pt non-verbal Exam/Review of Systems Vital Signs Vitals Vital Signs Date Temp Pulse Resp B/P (MAP) Pulse Ox O2 O2 Flow FiO2 Time Delivery Rate 06/17/18 73 14 97 30 17:16 06/17/18 98.0 102/54 16:27 (70) 06/16/18 Mechanical 23:16 Ventilator Exam Constitutional: non-verbal Respiratory: clear to auscultation Cardiovascular: regular rate and rhythm Gastrointestinal: soft; No distended Musculoskeletal: nl extremities to inspection Medications Medications Current Medications IV Flush (NS 3 ml) 3 ml PER PROTOCOL IV ; Start 06/14/18 at 18:30 Ondansetron HCl (Zofran Inj) 4 mg Q6H PRN IV NAUSEA AND/OR VOMITING; Start at 18:30 Morphine Sulfate (morphine) 2 mg Q4H PRN IV SEVERE PAIN LEVEL 7-10 Last administered on 06/14/18 19:09; Admin Dose 2 MG; Start 06/14/18 at 18:30 Amiodarone HCl (Cordarone) 400 mg BID GTB Last administered on 06/17/18 09:26; Admin Dose 400 MG; Start 06/14/18 at 21:00 Apixaban (Eliquis) 2.5 mg BID GTB Last administered on 06/17/18 09:23; Admin Dose 2.5 MG; Start 06/14/18 at 21:00 Ascorbic Acid (Vitamin C) 500 mg BID GTB Last administered on 06/17/18 09:26; Admin Dose 500 MG; Start 06/14/18 at 21:00 Chlorhexidine Gluconate (Peridex) 15 ml QAM MM Last administered on 06/17/18 09:22; Admin Dose 15 ML; Start 06/15/18 at 09:00 Cholestyramine Resin (Questran) 1 pkt DAILY GTB Last administered on 06/17/18 09:22; Admin Dose 1 PKT; Start 06/15/18 at 09:00 Levothyroxine Sodium (Synthroid) 25 mcg BEFORE BREAKFAST GTB Last administered on 06/17/18 06:01; Admin Dose 25 MCG; Start 06/15/18 at 07:00 Quetiapine Fumarate (Seroquel) 25 mg BID GTB Last administered on 06/17/18at 09:26; Admin Dose 25 MG; Start 06/14/18 at 21:00 Beta Carotene (Ocuvite) 1 tab DAILY GTB Last administered on 06/17/18at 09:22; Admin Dose 1 TAB; Start 06/15/18 at 09:00 Pantoprazole (Protonix Iv) 40 mg DAILY@06 IV Last administered on 06/17/18at 05:37; Admin Dose 40 MG; Start 06/16/18 at 06:00 Mupirocin (Bactroban) 1 applic DAILY TOP Last administered on 06/17/18at 09:28; Admin Dose 1 APPLIC; Start 06/15/18 at 12:00 Meropenem/Sodium Chloride 50 ml @ 100 mls/hr Q12 IVPB Last administered on 06/17/18at 11:04; Admin Dose 100 MLS/HR; Start 06/16/18 at 21:00 Nystatin (Nystatin Susp) 5 ml QID PO Last administered on 06/17/18at 12:55; Admin Dose 5 ML; Start 06/16/18 at 13:00 Acetaminophen (Tylenol Liquid) 500 mg Q6H PRN GTB MILD PAIN(1-3)OR ELEVATED TEMP; Start 06/17/18 at 11:00 ISAIAH CANDELARIO Jun 17, 2018 17:29
--- NOTE | 2018-06-17 20:44 | CONS ---
Date/Time of Note Date/Time of Note DATE: 06/17/18 TIME: 20:42 Consult Date/Type/Reason Admit Date/Time Jun 14, 2018 at 17:13 Initial Consult Date 06/15/18 Reason for Consultation Interventional cardiology follow-up progress note Subjective: Case discussed with the staff and telemetry was reviewed. Patient remains mostly in atrial paced rhythm. No more episode of atrial fibrillation Patient started with tracheostomy on the vent and does not answer my question Objective: General: Elderly thin female status post tracheostomy on the vent with 30% oxygen HEENT: NC/AT. pupils are equal. round. NECK: Status post tracheostomy. no stridor. CV: RRR. systolic murmur; no gallop or rubs. PULM: no wheezing. Mild rhonchi. GI: SOFT, NT, ND, no rebound or guarding Extremity: No significant LE edema. no clubbing. neuro: awake and appears alert, but does not answer my question Psych: calm the moment rectal: deferred Chest x-ray shows: Cardiomegaly with calcific atherosclerosis of the aorta. Bibasilar atelectasis or consolidations with small left pleural effusion. Tracheostomy tube and left-sided cardiac pacer in place.. Requesting Provider: ISAIAH CANDELARIO Objective Vital Signs Date Temp Pulse Resp B/P (MAP) Pulse Ox O2 O2 Flow FiO2 Time Delivery Rate 06/17/18 97.9 73 17 111/58 99 20:10 (75) 06/17/18 30 19:44 06/16/18 Mechanical 23:16 Ventilator Results/Medications Result Diagram: 06/17/18 0525 06/17/18 0525 Results 24 hrs Laboratory Tests Test 06/17/18 05:21 06/17/18 05:25 06/17/18 15:40 Absolute Reticulocyte Count 0.115 H Percent Reticulocyte Count 3.6 H Iron Level 17 L Total Iron Binding Capacity 326 Percent Iron Saturation 5 L Ferritin 38.4 Vitamin B12 Level 899 Folate > 20.0 H White Blood Count 10.8 Red Blood Count 3.19 L Hemoglobin 7.7 L Hematocrit 26.5 L Mean Corpuscular Volume 83.1 Mean Corpuscular Hemoglobin 24.1 L Mean Corpuscular Hemoglobin Concent 29.1 L Red Cell Distribution Width 18.1 H Platelet Count 191 Mean Platelet Volume 12.6 H Immature Granulocytes % 0.600 H Neutrophils % 80.0 H Lymphocytes % 13.0 L Monocytes % 5.9 Eosinophils % 0.3 Basophils % 0.2 Nucleated Red Blood Cells % 0.0 Immature Granulocytes # 0.070 H Neutrophils # 8.6 H Lymphocytes # 1.4 Monocytes # 0.6 Eosinophils # 0.0 Basophils # 0.0 Nucleated Red Blood Cells # 0.0 Sodium Level 145 H Potassium Level 4.0 Chloride Level 108 Carbon Dioxide Level 34 H Anion Gap 3 L Blood Urea Nitrogen 24 H Creatinine 0.60 Est Glomerular Filtrat Rate mL/min Glucose Level 117 Calcium Level 8.5 Stool Occult Blood NEGATIVE Medications Current Medications IV Flush (NS 3 ml) 3 ml PER PROTOCOL IV ; Start 06/14/18 at 18:30 Ondansetron HCl (Zofran Inj) 4 mg Q6H PRN IV NAUSEA AND/OR VOMITING; Start 06/14/18 at 18:30 Morphine Sulfate (morphine) 2 mg Q4H PRN IV SEVERE PAIN LEVEL 7-10 Last administered on 06/14/18 19:09; Admin Dose 2 MG; Start 06/14/18 at 18:30 Amiodarone HCl (Cordarone) 400 mg BID GTB Last administered on 06/17/18 09:26; Admin Dose 400 MG; Start 06/14/18 at 21:00 Apixaban (Eliquis) 2.5 mg BID GTB Last administered on 06/17/18 09:23; Admin Dose 2.5 MG; Start 06/14/18 at 21:00 Ascorbic Acid (Vitamin C) 500 mg BID GTB Last administered on 06/17/18 09:26; Admin Dose 500 MG; Start 06/14/18 at 21:00 Chlorhexidine Gluconate (Peridex) 15 ml QAM MM Last administered on 06/17/18 09:22; Admin Dose 15 ML; Start 06/15/18 at 09:00 Cholestyramine Resin (Questran) 1 pkt DAILY GTB Last administered on 06/17/18 09:22; Admin Dose 1 PKT; Start 06/15/18 at 09:00 Levothyroxine Sodium (Synthroid) 25 mcg BEFORE BREAKFAST GTB Last administered on 06/17/18at 06:01; Admin Dose 25 MCG; Start 06/15/18 at 07:00 Quetiapine Fumarate (Seroquel) 25 mg BID GTB Last administered on 06/17/18 09:26; Admin Dose 25 MG; Start 06/14/18 at 21:00 Beta Carotene (Ocuvite) 1 tab DAILY GTB Last administered on 06/17/18at 09:22; Admin Dose 1 TAB; Start 06/15/18 at 09:00 Pantoprazole (Protonix Iv) 40 mg DAILY@06 IV Last administered on 06/17/18at 0 5:37; Admin Dose 40 MG; Start 06/16/18 at 06:00 Mupirocin (Bactroban) 1 applic DAILY TOP Last administered on 06/17/18 09:28; Admin Dose 1 APPLIC; Start 06/15/18 at 12:00 Meropenem/Sodium Chloride 50 ml @ 100 mls/hr Q12 IVPB Last administered on 06/17/18 11:04; Admin Dose 100 MLS/HR; Start 06/16/18 at 21:00 Nystatin (Nystatin Susp) 5 ml QID PO Last administered on 06/17/18 17:00; Admin Dose 5 ML; Start 06/16/18 at 13:00 Acetaminophen (Tylenol Liquid) 500 mg Q6H PRN GTB MILD PAIN(1-3)OR ELEVATED TEMP; Start 06/17/18 at 11:00 Assessment/Plan Chief Complaint/Hosp Course 1. Septic shock 2. Paroxysmal atrial fibrillation and P supraventricular tachycardia 3. Respiratory failure status post tracheostomy now back on the vent 4. Sick sinus syndrome status post permanent pacemaker 5. Urinary tract infection and possible pneumonia 6. History of congestive heart failure/diastolic heart failure 7. History of enterocutaneous fistula and liver disease 8. Dysphagia status post PEG placement 9. Encephalopathy 10. Lactic acidosis 11. anemia Recommendations: Antibiotic management as per ID recommendation Eliquis will be continued as long as no active bleeding is noted. i will order stool guiac I will continue with amiodarone at the current dose for now and will decrease the dose slowly as long as she remains in sinus or A paced rhythm Vent support to be continued to be managed by pulmonary Avoid fluid overload Nutritional support to be resumed Continue GI prophylaxis as well Electrolytes including potassium to be replaced as needed basis TSH is wnl Thank you for his referral. We will continue to follow along with you MARLENA MCKEON MD [facility] MARLENA MCKEON MD Jun 17, 2018 20:44
[2018-06-18] VITALS (22 sets, daily range): BP systolic 100–140; BP diastolic 46–75; PULSE 54–75; RESP 12–18
[2018-06-18] MEDS: PANTOPRAZOLE 40 MG INJ IV SCH (06:14)
[2018-06-18] MEDS: LEVOTHYROXINE 25 MCG TAB GTB SCH (06:15)
--- NOTE | 2018-06-18 07:54 | CONS ---
Date/Time of Note Date/Time of Note DATE: 06/18/18 TIME: 07:54 Assessment/Plan Assessment/Plan Assessment/Plan 1. H/O Colocutanoeus fistula status post closure endoscopically with [place]ves[place] clip by Dr Perdomo no stool is coming out through the fistula. Colostomy bag attached to the fistula site 2. Anemia -retic elevated, iron low, TIBC wnl, percent sat low 3. UTI, ESBL and E. Coli -followed by ID 4. Chronic respiratory failure secondary to CHF and pna -followed by pulm 5. A fib, s/p pacemaker placement, on Eliquis -followed by cardiology Result Diagram: 06/17/18 0525 06/17/18 0525 Results 24hrs Laboratory Tests Test 06/17/18 15:40 Stool Occult Blood NEGATIVE Consultation Date/Type/Reason Admit Date/Time Jun 14, 2018 at 17:13 Initial Consult Date 06/15/18 Requesting Provider: ISAIAH CANDELARIO 24 HR Interval Summary Free Text/Dictation Discussed with the staff no stool is coming out through the fistula Constitutional: improved Exam/Review of Systems Vital Signs Vitals Vital Signs Date Temp Pulse Resp B/P (MAP) Pulse Ox O2 O2 Flow FiO2 Time Delivery Rate 06/18/18 73 17 100 30 05:20 06/18/18 98.4 124/73 04:00 (90) 06/16/18 Mechanical 23:16 Ventilator Intake and Output 06/17/18 06/17/18 06/18/18 1515:00 23:00 07:00 IntakeIntake Total 635 ml 620 ml OutputOutput Total 450 ml 800 ml BalanceBalance 185 ml -180 ml Exam Eyes: nl conjunctiva, EOMI, nl lids, nl sclera, PERRL ENMT: nl external ears & nose, nl lips & teeth, nl nasal mucosa & septum Cardiovascular: bruits Medications Medications Current Medications IV Flush (NS 3 ml) 3 ml PER PROTOCOL IV ; Start 06/14/18 at 18:30 Ondansetron HCl (Zofran Inj) 4 mg Q6H PRN IV NAUSEA AND/OR VOMITING; Start 06/14/18 at 18:30 Morphine Sulfate (morphine) 2 mg Q4H PRN IV SEVERE PAIN LEVEL 7-10 Last admini stered on 06/14/18at 19:09; Admin Dose 2 MG; Start 06/14/18 at 18:30 Amiodarone HCl (Cordarone) 400 mg BID GTB Last administered on 06/17/18 20:53; Admin Dose 400 MG; Start 06/14/18 at 21:00 Apixaban (Eliquis) 2.5 mg BID GTB Last administered on 06/17/18 20:52; Admin Dose 2.5 MG; Start 06/14/18 at 21:00 Ascorbic Acid (Vitamin C) 500 mg BID GTB Last administered on 06/17/18 20:52; Admin Dose 500 MG; Start 06/14/18 at 21:00 Chlorhexidine Gluconate (Peridex) 15 ml QAM MM Last administered on 06/17/18 09:22; Admin Dose 15 ML; Start 06/15/18 at 09:00 Cholestyramine Resin (Questran) 1 pkt DAILY GTB Last administered on 06/17/18 09:22; Admin Dose 1 PKT; Start 06/15/18 at 09:00 Levothyroxine Sodium (Synthroid) 25 mcg BEFORE BREAKFAST GTB Last administered on 06/18/18 06:15; Admin Dose 25 MCG; Start 06/15/18 at 07:00 Quetiapine Fumarate (Seroquel) 25 mg BID GTB Last administered on 06/17/18 20:52; Admin Dose 25 MG; Start 06/14/18 at 21:00 Beta Carotene (Ocuvite) 1 tab DAILY GTB Last administered on 06/17/18 09:22; Admin Dose 1 TAB; Start 06/15/18 at 09:00 Pantoprazole (Protonix Iv) 40 mg DAILY@06 IV Last administered on 06/18/18 06:14; Admin Dose 40 MG; Start 06/16/18 at 06:00 Mupirocin (Bactroban) 1 applic DAILY TOP Last administered on 06/17/18 09:28; Admin Dose 1 APPLIC; Start 06/15/18 at 12:00 Meropenem/Sodium Chloride 50 ml @ 100 mls/hr Q12 IVPB Last administered on 06/17/18 21:13; Admin Dose 100 MLS/HR; Start 06/16/18 at 21:00 Nystatin (Nystatin Susp) 5 ml QID PO Last administered on 1/18/19at 20:52; Admin Dose 5 ML; Start 06/16/18 at 13:00 Acetaminophen (Tylenol Liquid) 500 mg Q6H PRN GTB MILD PAIN(1-3)OR ELEVATED TEMP; Start 06/17/18 at 11:00 ALEX PERDOMO MD Jun 18, 2018 07:54
[2018-06-18] MEDS: CHLORHEXIDINE GLUCONATE 15 ML UD CUP MM SCH (09:30)
[2018-06-18] MEDS: MEROPENEM 1 GM/50ML(PMX) 50 ML IVPB SCH ×2 (09:30→20:30)
[2018-06-18] MEDS: CHOLESTYRAMINE 4 GM PACKET GTB SCH (09:30)
[2018-06-18] MEDS: NYSTATIN SUSP 5 ML CUP PO SCH ×4 (09:30→20:43)
[2018-06-18] MEDS: BETA CAROTENE/VIT C/E/MIN TAB GTB SCH (09:31)
[2018-06-18] MEDS: AMIODARONE 200 MG TAB GTB SCH ×2 (09:31→20:36)
[2018-06-18] MEDS: QUETIAPINE 25 MG TAB GTB SCH ×2 (09:31→20:34)
[2018-06-18] MEDS: ASCORBIC ACID 500 MG TAB GTB SCH ×2 (09:31→20:35)
[2018-06-18] MEDS: APIXABAN 5 MG TABLET GTB SCH ×2 (09:32→20:35)
[2018-06-18] MEDS: MUPIROCIN 2% 22 GM OINT TOP SCH (09:53)
--- NOTE | 2018-06-18 12:19 | CONS ---
Date/Time of Note Date/Time of Note DATE: 06/18/18 TIME: 12:18 Assessment/Plan Assessment/Plan Result Diagram: 06/18/18 1106 06/18/18 1106 Results 24hrs Laboratory Tests Test 06/17/18 15:40 06/18/18 03:00 06/18/18 11:06 Stool Occult Blood NEGATIVE NEGATIVE White Blood Count 8.8 Red Blood Count 3.31 L Hemoglobin 7.9 L Hematocrit 28.1 L Mean Corpuscular Volume 84.9 Mean Corpuscular Hemoglobin 23.9 L Mean Corpuscular Hemoglobin Concent 28.1 L Red Cell Distribution Width 18.4 H Platelet Count 177 Mean Platelet Volume 12.3 H Immature Granulocytes % 0.500 H Neutrophils % 75.6 Lymphocytes % 16.4 Monocytes % 7.3 Eosinophils % 0.1 Basophils % 0.1 Nucleated Red Blood Cells % 0.0 Immature Granulocytes # 0.040 H Neutrophils # 6.6 Lymphocytes # 1.4 Monocytes # 0.6 Eosinophils # 0.0 Basophils # 0.0 Nucleated Red Blood Cells # 0.0 Sodium Level 140 Potassium Level 4.1 Chloride Level 109 Carbon Dioxide Level 29 Anion Gap 2 L Blood Urea Nitrogen 19 Creatinine 0.50 Est Glomerular Filtrat Rate mL/min Glucose Level 90 Calcium Level 8.6 Consultation Date/Type/Reason Admit Date/Time Jun 14, 2018 at 17:13 Initial Consult Date SUBJECTIVE: Pt is awake, alert,looks comfortable, no fevers. VS: stable T: 97.7 LABS: reviewed. WBC-8.8 Microbiology: Urine culture grew E. coli ESBL blood culture remains negative Indwelling: Trach PEG Henry, left upper extremity PICC line Antimicrobials: Meropenem. Physical examination: This is a fragile chronically ill-appearing well-developed elderly woman who is awake in no distress. Head atraumatic normocephalic sclera nonicteric. Neck is supple tracheostomy present. Chest rise symmetrical breath sounds clear. Heart: S1-S2. Abdomen soft bowel sounds present right-sided dressing clean dry and intact. Extremities without cyanosis, trace edema Assessment: 1. Sepsis, present on admission 2. E. coli ESBL UTI 3. Chronic respiratory failure 4. Coronary artery disease status post permanent pacemaker 5. 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 Oral thrush Plan: Patient remained stable. Continue Merrem. Pulmonary and GI rec-s Requesting Provider: ISAIAH CANDELARIO Exam/Review of Systems Vital Signs Vitals Vital Signs Date Temp Pulse Resp B/P (MAP) Pulse Ox O2 O2 Flow FiO2 Time Delivery Rate 06/18/18 70 12 99 30 11:55 06/18/18 97.7 100/52 11:43 (68) 06/16/18 Mechanical 23:16 Ventilator Intake and Output 06/17/18 06/17/18 06/18/18 1515:00 23:00 07:00 IntakeIntake Total 635 ml 620 ml OutputOutput Total 450 ml 800 ml BalanceBalance 185 ml -180 ml Medications Medications Current Medications IV Flush (NS 3 ml) 3 ml PER PROTOCOL IV ; Start 06/14/18 at 18:30 Ondansetron HCl (Zofran Inj) 4 mg Q6H PRN IV NAUSEA AND/OR VOMITING; Start 06/14/18 at 18:30 Morphine Sulfate (morphine) 2 mg Q4H PRN IV SEVERE PAIN LEVEL 7-10 Last administered on 06/14/18 19:09; Admin Dose 2 MG; Start 06/14/18 at 18:30 Amiodarone HCl (Cordarone) 400 mg BID GTB Last administered on 06/18/18 09:31; Admin Dose 400 MG; Start 06/14/18 at 21:00 Apixaban (Eliquis) 2.5 mg BID GTB Last administered on 06/18/18 09:32; Admin Dose 2.5 MG; Start 06/14/18 at 21:00 Ascorbic Acid (Vitamin C) 500 mg BID GTB Last administered on 06/18/18 09:31; Admin Dose 500 MG; Start 06/14/18 at 21:00 Chlorhexidine Gluconate (Peridex) 15 ml QAM MM Last administered on 06/18/18 09:30; Admin Dose 15 ML; Start 06/15/18 at 09:00 Cholestyramine Resin (Questran) 1 pkt DAILY GTB Last administered on 06/18/18 09:30; Admin Dose 1 PKT; Start 06/15/18 at 09:00 Levothyroxine Sodium (Synthroid) 25 mcg BEFORE BREAKFAST GTB Last administered on 06/18/18 06:15; Admin Dose 25 MCG; Start 06/15/18 at 07:00 Quetiapine Fumarate (Seroquel) 25 mg BID GTB Last administered on 06/18/18 09:31; Admin Dose 25 MG; Start 06/14/18 at 21:00 Beta Carotene (Ocuvite) 1 tab DAILY GTB Last administered on 06/18/18 09:31; Admin Dose 1 TAB; Start 06/15/18 at 09:00 Pantoprazole (Protonix Iv) 40 mg DAILY@06 IV Last administered on 06/18/18at 06:14; Admin Dose 40 MG; Start 06/16/18 at 06:00 Mupirocin (Bactroban) 1 applic DAILY TOP Last administered on 06/18/18 09:53; Admin Dose 1 APPLIC; Start 06/15/18 at 12:00 Meropenem/Sodium Chloride 50 ml @ 100 mls/hr Q12 IVPB Last administered on 09:30; Admin Dose 100 MLS/HR; Start 06/16/18 at 21:00 Nystatin (Nystatin Susp) 5 ml QID PO Last administered on 06/18/18 09:30; Admin Dose 5 ML; Start 06/16/18 at 13:00 Acetaminophen (Tylenol Liquid) 500 mg Q6H PRN GTB MILD PAIN(1-3)OR ELEVATED TEMP; Start 06/17/18 at 11:00 KARRI MARTINES Jun 18, 2018 12:19
--- NOTE | 2018-06-18 12:46 | CONS ---
Date/Time of Note Date/Time of Note DATE: 06/18/18 TIME: 12:46 Assessment/Plan Assessment/Plan Hospital Course ID PROGRESS NOTE = OPENED IN ERROR Patient is being seen by alternative ID covering [employer]YWALLER provider today. Please refer to Thea Holt NP ID Progress Note of same date 06/18/18. . Result Diagram: 06/18/18 1106 06/18/18 1106 Results 24hrs Laboratory Tests Test 06/17/18 15:40 06/18/18 03:00 06/18/18 11:06 Stool Occult Blood NEGATIVE NEGATIVE White Blood Count 8.8 Red Blood Count 3.31 L Hemoglobin 7.9 L Hematocrit 28.1 L Mean Corpuscular Volume 84.9 Mean Corpuscular Hemoglobin 23.9 L Mean Corpuscular Hemoglobin Concent 28.1 L Red Cell Distribution Width 18.4 H Platelet Count 177 Mean Platelet Volume 12.3 H Immature Granulocytes % 0.500 H Neutrophils % 75.6 Lymphocytes % 16.4 Monocytes % 7.3 Eosinophils % 0.1 Basophils % 0.1 Nucleated Red Blood Cells % 0.0 Immature Granulocytes # 0.040 H Neutrophils # 6.6 Lymphocytes # 1.4 Monocytes # 0.6 Eosinophils # 0.0 Basophils # 0.0 Nucleated Red Blood Cells # 0.0 Sodium Level 140 Potassium Level 4.1 Chloride Level 109 Carbon Dioxide Level 29 Anion Gap 2 L Blood Urea Nitrogen 19 Creatinine 0.50 Est Glomerular Filtrat Rate mL/min Glucose Level 90 Calcium Level 8.6 Consultation Date/Type/Reason Admit Date/Time Jun 14, 2018 at 17:13 Initial Consult Date 06/15/18 Requesting Provider: ISAIAH CANDELARIO Exam/Review of Systems Vital Signs Vitals Vital Signs Date Temp Pulse Resp B/P (MAP) Pulse Ox O2 O2 Flow FiO2 Time Delivery Rate 06/18/18 70 12 99 30 11:55 06/18/18 97.7 100/52 11:43 (68) 06/16/18 Mechanical 23:16 Ventilator Intake and Output 06/17/18 06/17/18 06/18/18 1515:00 23:00 07:00 IntakeIntake Total 635 ml 620 ml OutputOutput Total 450 ml 800 ml BalanceBalance 185 ml -180 ml Medications Medications Current Medications IV Flush (NS 3 ml) 3 ml PER PROTOCOL IV ; Start 06/14/18 at 18:30 Ondansetron HCl (Zofran Inj) 4 mg Q6H PRN IV NAUSEA AND/OR VOMITING; Start 06/14/18 at 18:30 Morphine Sulfate (morphine) 2 mg Q4H PRN IV SEVERE PAIN LEVEL 7-10 Last administered on 06/14/18 19:09; Admin Dose 2 MG; Start 06/14/18 at 18:30 Amiodarone HCl (Cordarone) 400 mg BID GTB Last administered on 06/18/18 09:31; Admin Dose 400 MG; Start 06/14/18 at 21:00 Apixaban (Eliquis) 2.5 mg BID GTB Last administered on 06/18/18 09:32; Admin Dose 2.5 MG; Start 06/14/18 at 21:00 Ascorbic Acid (Vitamin C) 500 mg BID GTB Last administered on 06/18/18 09:31; Admin Dose 500 MG; Start 06/14/18 at 21:00 Chlorhexidine Gluconate (Peridex) 15 ml QAM MM Last administered on 06/18/18 09:30; Admin Dose 15 ML; Start 06/15/18 at 09:00 Cholestyramine Resin (Questran) 1 pkt DAILY GTB Last administered on 06/18/18 09:30; Admin Dose 1 PKT; Start 06/15/18 at 09:00 Levothyroxine Sodium (Synthroid) 25 mcg BEFORE BREAKFAST GTB Last administered on 06/18/18 06:15; Admin Dose 25 MCG; Start 06/15/18 at 07:00 Quetiapine Fumarate (Seroquel) 25 mg BID GTB Last administered on 06/18/18 09:31; Admin Dose 25 MG; Start 06/14/18 at 21:00 Beta Carotene (Ocuvite) 1 tab DAILY GTB Last administered on 06/18/18 09:31; Admin Dose 1 TAB; Start 06/15/18 at 09:00 Pantoprazole (Protonix Iv) 40 mg DAILY@06 IV Last administered on 06/18/18 06:14; Admin Dose 40 MG; Start 06/16/18 at 06:00 Mupirocin (Bactroban) 1 applic DAILY TOP Last administered on 06/18/18 09:53; Admin Dose 1 APPLIC; Start 06/15/18 at 12:00 Meropenem/Sodium Chloride 50 ml @ 100 mls/hr Q12 IVPB Last administered on 06/18/18at 09:30; Admin Dose 100 MLS/HR; Start 06/16/18 at 21:00 Nystatin (Nystatin Susp) 5 ml QID PO Last administered on 06/18/18at 12:32; Admin Dose 5 ML; Start 06/16/18 at 13:00 Acetaminophen (Tylenol Liquid) 500 mg Q6H PRN GTB MILD PAIN(1-3)OR ELEVATED TEMP; Start 06/17/18 at 11:00 SUSANA MANN NP Jun 18, 2018 12:46
--- NOTE | 2018-06-18 13:16 | PN ---
Date/Time of Note Date/Time of Note DATE: 06/18/18 TIME: 13:14 Assessment/Plan VTE [place] [facility] [place]: 13 [place] [facility] [place] Yes Pharmacological prophylaxis: apixaban Lines/Catheters IV Catheter Type (from [facility]): Mid Line Assessment/Plan Hospital Course 1. Septic shock secondary to UTI-improved Urine culture is growing ESBL E. coli Continue meropenem ID consultation appreciated IV fluids 2. Chronic respiratory failure secondary to CHF and pneumonia status post tracheostomy Continue vent support Pulmonology consultation appreciated,, patient will need to continue vent sup port at the subacute 3. Hypothyroidism Continue home meds 4. A. fib status post pacemaker placement Continue anticoagulation Cardiology consultation appreciated 5. Normocytic anemia likely secondary to chronic disease Monitor No indication for transfusion at this time 6. Metabolic alkalosis likely secondary to contraction-resolved with fluids IV fluids 7. Azotemia secondary to dehydration-improved with fluids IV fluids 8. 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 by Dr Earl GI consultation appreciated Prophylaxis: Eliquis DC planning: Anticipate DC back to subacute facility tomorrow, patient is now afebrile but daughter does not want patient to be discharged today Result Diagram: 06/18/18 1106 06/18/18 1106 Results 24hrs Laboratory Tests Test 06/17/18 15:40 06/18/18 03:00 06/18/18 11:06 Stool Occult Blood NEGATIVE NEGATIVE White Blood Count 8.8 Red Blood Count 3.31 L Hemoglobin 7.9 L Hematocrit 28.1 L Mean Corpuscular Volume 84.9 Mean Corpuscular Hemoglobin 23.9 L Mean Corpuscular Hemoglobin Concent 28.1 L Red Cell Distribution Width 18.4 H Platelet Count 177 Mean Platelet Volume 12.3 H Immature Granulocytes % 0.500 H Neutrophils % 75.6 Lymphocytes % 16.4 Monocytes % 7.3 Eosinophils % 0.1 Basophils % 0.1 Nucleated Red Blood Cells % 0.0 Immature Granulocytes # 0.040 H Neutrophils # 6.6 Lymphocytes # 1.4 Monocytes # 0.6 Eosinophils # 0.0 Basophils # 0.0 Nucleated Red Blood Cells # 0.0 Sodium Level 140 Potassium Level 4.1 Chloride Level 109 Carbon Dioxide Level 29 Anion Gap 2 L Blood Urea Nitrogen 19 Creatinine 0.50 Est Glomerular Filtrat Rate mL/min Glucose Level 90 Calcium Level 8.6 Subjective 24 Hr Interval Summary Subjective hx not possible: pt non-verbal Exam/Review of Systems Vital Signs Vitals Vital Signs Date Temp Pulse Resp B/P (MAP) Pulse Ox O2 O2 Flow FiO2 Time Delivery Rate 06/18/18 70 12 99 30 11:55 06/18/18 97.7 100/52 11:43 (68) 06/16/18 Mechanical 23:16 Ventilator Intake and Output 06/17/18 06/17/18 06/18/18 1515:00 23:00 07:00 IntakeIntake Total 635 ml 620 ml OutputOutput Total 450 ml 800 ml BalanceBalance 185 ml -180 ml Exam Constitutional: non-verbal Respiratory: clear to auscultation Cardiovascular: regular rate and rhythm Gastrointestinal: soft; No distended Musculoskeletal: nl extremities to inspection Medications Medications Current Medications IV Flush (NS 3 ml) 3 ml PER PROTOCOL IV ; Start 06/14/18 at 18:30 Ondansetron HCl (Zofran Inj) 4 mg Q6H PRN IV NAUSEA AND/OR VOMITING; Start 06/14/18 at 18:30 Morphine Sulfate (morphine) 2 mg Q4H PRN IV SEVERE PAIN LEVEL 7-10 Last admi nistered on 06/14/18 19:09; Admin Dose 2 MG; Start 06/14/18 at 18:30 Amiodarone HCl (Cordarone) 400 mg BID GTB Last administered on 06/18/18 09:31; Admin Dose 400 MG; Start 06/14/18 at 21:00 Apixaban (Eliquis) 2.5 mg BID GTB Last administered on 06/18/18 09:32; Admin Dose 2.5 MG; Start 06/14/18 at 21:00 Ascorbic Acid (Vitamin C) 500 mg BID GTB Last administered on 06/18/18 09:31; Admin Dose 500 MG; Start 06/14/18 at 21:00 Chlorhexidine Gluconate (Peridex) 15 ml QAM MM Last administered on 06/18/18 09:30; Admin Dose 15 ML; Start 06/15/18 at 09:00 Cholestyramine Resin (Questran) 1 pkt DAILY GTB Last administered on 06/18/18 09:30; Admin Dose 1 PKT; Start 06/15/18 at 09:00 Levothyroxine Sodium (Synthroid) 25 mcg BEFORE BREAKFAST GTB Last administered on 06/18/18 06:15; Admin Dose 25 MCG; Start 06/15/18 at 07:00 Quetiapine Fumarate (Seroquel) 25 mg BID GTB Last administered on 06/18/18 09:31; Admin Dose 25 MG; Start 06/14/18 at 21:00 Beta Carotene (Ocuvite) 1 tab DAILY GTB Last administered on 06/18/18 09:31; Admin Dose 1 TAB; Start 06/15/18 at 09:00 Pantoprazole (Protonix Iv) 40 mg DAILY@06 IV Last administered on 06/18/18 06:14; Admin Dose 40 MG; Start 06/16/18 at 06:00 Mupirocin (Bactroban) 1 applic DAILY TOP Last administered on 06/18/18 09:53; Admin Dose 1 APPLIC; Start 06/15/18 at 12:00 Meropenem/Sodium Chloride 50 ml @ 100 mls/hr Q12 IVPB Last administered on 06/18/18 09:30; Admin Dose 100 MLS/HR; Start 06/16/18 at 21:00 Nystatin (Nystatin Susp) 5 ml QID PO Last administered on 06/18/18 12:32; Admin Dose 5 ML; Start 06/16/18 at 13:00 Acetaminophen (Tylenol Liquid) 500 mg Q6H PRN GTB MILD PAIN(1-3)OR ELEVATED TEMP; Start 06/17/18 at 11:00 ISAIAH CANDELARIO Jun 18, 2018 13:16
--- NOTE | 2018-06-18 14:39 | CONS ---
Date/Time of Note Date/Time of Note DATE: 06/18/18 TIME: 14:36 Consult Date/Type/Reason Admit Date/Time Jun 14, 2018 at 17:13 Initial Consult Date 06/15/18 Type of Consultation: Pulm Requesting Provider: ISAIAH CANDELARIO Subjective No events overnight. Stable on the vent. Objective Vital Signs Date Temp Pulse Resp B/P (MAP) Pulse Ox O2 O2 Flow FiO2 Time Delivery Rate 06/18/18 70 12 100 30 13:15 06/18/18 97.7 100/52 11:43 (68) 06/16/18 Mechanical 23:16 Ventilator Intake and Output 06/17/18 06/17/18 06/18/18 1515:00 23:00 07:00 IntakeIntake Total 635 ml 620 ml OutputOutput Total 450 ml 800 ml BalanceBalance 185 ml -180 ml Exam HEENT: Neck supple; no JVD; no LAD; + trach site clean CVS: RRR, S1 and S2 CHEST: Coarse rhomchi B/L ABD: Soft, NT, + BS EXT: No c/c; + edema Results/Medications Result Diagram: 06/18/18 1106 06/18/18 1106 Results 24 hrs Laboratory Tests Test 06/17/18 15:40 06/18/18 03:00 06/18/18 11:06 Stool Occult Blood NEGATIVE NEGATIVE White Blood Count 8.8 Red Blood Count 3.31 L Hemoglobin 7.9 L Hematocrit 28.1 L Mean Corpuscular Volume 84.9 Mean Corpuscular Hemoglobin 23.9 L Mean Corpuscular Hemoglobin Concent 28.1 L Red Cell Distribution Width 18.4 H Platelet Count 177 Mean Platelet Volume 12.3 H Immature Granulocytes % 0.500 H Neutrophils % 75.6 Lymphocytes % 16.4 Monocytes % 7.3 Eosinophils % 0.1 Basophils % 0.1 Nucleated Red Blood Cells % 0.0 Immature Granulocytes # 0.040 H Neutrophils # 6.6 Lymphocytes # 1.4 Monocytes # 0.6 Eosinophils # 0.0 Basophils # 0.0 Nucleated Red Blood Cells # 0.0 Sodium Level 140 Potassium Level 4.1 Chloride Level 109 Carbon Dioxide Level 29 Anion Gap 2 L Blood Urea Nitrogen 19 Creatinine 0.50 Est Glomerular Filtrat Rate mL/min Glucose Level 90 Calcium Level 8.6 Medications Current Medications IV Flush (NS 3 ml) 3 ml PER PROTOCOL IV ; Start 06/14/18 at 18:30 Ondansetron HCl (Zofran Inj) 4 mg Q6H PRN IV NAUSEA AND/OR VOMITING; Start 06/14/18 at 18:30 Morphine Sulfate (morphine) 2 mg Q4H PRN IV SEVERE PAIN LEVEL 7-10 Last administered on 06/14/18 19:09; Admin Dose 2 MG; Start 06/14/18 at 18:30 Amiodarone HCl (Cordarone) 400 mg BID GTB Last administered on 06/18/18 09:31; Admin Dose 400 MG; Start 06/14/18 at 21:00 Apixaban (Eliquis) 2.5 mg BID GTB Last administered on 06/18/18 09:32; Admin Dose 2.5 MG; Start 06/14/18 at 21:00 Ascorbic Acid (Vitamin C) 500 mg BID GTB Last administered on 06/18/18 09:31; Admin Dose 500 MG; Start 06/14/18 at 21:00 Chlorhexidine Gluconate (Peridex) 15 ml QAM MM Last administered on 06/18/18 09:30; Admin Dose 15 ML; Start 06/15/18 at 09:00 Cholestyramine Resin (Questran) 1 pkt DAILY GTB Last administered on 06/18/18 09:30; Admin Dose 1 PKT; Start 06/15/18 at 09:00 Levothyroxine Sodium (Synthroid) 25 mcg BEFORE BREAKFAST GTB Last administered on 06/18/18 06:15; Admin Dose 25 MCG; Start 06/15/18 at 07:00 Quetiapine Fumarate (Seroquel) 25 mg BID GTB Last administered on 06/18/18 09:31; Admin Dose 25 MG; Start 06/14/18 at 21:00 Beta Carotene (Ocuvite) 1 tab DAILY GTB Last administered on 06/18/18 09:31; Admin Dose 1 TAB; Start 06/15/18 at 09:00 Pantoprazole (Protonix Iv) 40 mg DAILY@06 IV Last administered on 06/18/18 06:14; Admin Dose 40 MG; Start 06/16/18 at 06:00 Mupirocin (Bactroban) 1 applic DAILY TOP Last administered on 1/19/19at 09:53; Admin Dose 1 APPLIC; Start 06/15/18 at 12:00 Meropenem/Sodium Chloride 50 ml @ 100 mls/hr Q12 IVPB Last administered on 06/18/18at 09:30; Admin Dose 100 MLS/HR; Start 06/16/18 at 21:00 Nystatin (Nystatin Susp) 5 ml QID PO Last administered on 06/18/18at 12:32; Admin Dose 5 ML; Start 06/16/18 at 13:00 Acetaminophen (Tylenol Liquid) 500 mg Q6H PRN GTB MILD PAIN(1-3)OR ELEVATED TEMP; Start 06/17/18 at 11:00 Assessment/Plan Additional Assessment/Plan IMP 1. Sepsis 2/2 urinary source 2. VDRF 3. Hypothyroidism 4. Afib 5. Anemia RECS: 1. Vent support 2. BD's 3. CPT 4. Abx per ID 5. TF/Free H20 ANNIE JETT MD Jun 18, 2018 14:39
[2018-06-18] MEDS: ACETAMINOPHEN 650MG/20.3ML CUP GTB PRN (15:54)
[2018-06-18] MEDS: LORAZEPAM 2 MG INJ IV PRN ×2 (17:53→23:57)
[2018-06-19] VITALS (16 sets, daily range): BP systolic 92–120; BP diastolic 41–64; PULSE 66–74; RESP 12–21
[2018-06-19] MEDS: PANTOPRAZOLE 40 MG INJ IV SCH (06:09)
[2018-06-19] MEDS: LEVOTHYROXINE 25 MCG TAB GTB SCH (06:11)
[2018-06-19] MEDS: CHOLESTYRAMINE 4 GM PACKET GTB SCH (09:14)
[2018-06-19] MEDS: NYSTATIN SUSP 5 ML CUP PO SCH ×2 (09:14→12:30)
[2018-06-19] MEDS: AMIODARONE 200 MG TAB GTB SCH (09:14)
[2018-06-19] MEDS: MUPIROCIN 2% 22 GM OINT TOP SCH (09:15)
[2018-06-19] MEDS: CHLORHEXIDINE GLUCONATE 15 ML UD CUP MM SCH (09:15)
[2018-06-19] MEDS: APIXABAN 5 MG TABLET GTB SCH (09:15)
[2018-06-19] MEDS: ASCORBIC ACID 500 MG TAB GTB SCH (09:15)
[2018-06-19] MEDS: QUETIAPINE 25 MG TAB GTB SCH (09:15)
[2018-06-19] MEDS: MEROPENEM 1 GM/50ML(PMX) 50 ML IVPB SCH (09:19)
--- NOTE | 2018-06-19 10:53 | CONS ---
Date/Time of Note Date/Time of Note DATE: 06/19/18 TIME: 10:51 Assessment/Plan Assessment/Plan Hospital Course 87 yo presents with UTI 1. H/O Colocutanoeus fistula status post closure endoscopically with [place] clip by Dr Earl 2. Anemia, acute on chronic -retic elevated, iron low, TIBC wnl, percent sat low -Anemia work up noted, FOB neg x 2 3. UTI, ESBL and E. Coli -followed by ID 4. Chronic respiratory failure secondary to CHF and pna -followed by pulm 5. A fib, s/p pacemaker placement, on Eliquis -followed by cardiology Plan: C diff Will monitor HH closely, colonoscopy done 06/07/18. If HH continues to trend down we may consider EGD and/or colon but FOB neg x 2. Keep fistula site clean and dry. Pt is on questran due to diarrhea she was having. Pt examined and plan of care discussed with Dr. Earl Result Diagram: 06/19/18 0506 06/19/18 0506 Results 24hrs Laboratory Tests Test 06/18/18 11:06 06/19/18 05:06 White Blood Count 8.8 7.4 Red Blood Count 3.31 L 3.03 L Hemoglobin 7.9 L 7.4 L Hematocrit 28.1 L 24.9 L Mean Corpuscular Volume 84.9 82.2 Mean Corpuscular Hemoglobin 23.9 L 24.4 L Mean Corpuscular Hemoglobin Concent 28.1 L 29.7 L Red Cell Distribution Width 18.4 H 18.0 H Platelet Count 177 240 # Mean Platelet Volume 12.3 H 12.4 H Immature Granulocytes % 0.500 H 0.500 H Neutrophils % 75.6 73.5 Lymphocytes % 16.4 18.6 Monocytes % 7.3 6.6 Eosinophils % 0.1 0.4 Basophils % 0.1 0.4 Nucleated Red Blood Cells % 0.0 0.0 Immature Granulocytes # 0.040 H 0.040 H Neutrophils # 6.6 5.4 Lymphocytes # 1.4 1.4 Monocytes # 0.6 0.5 Eosinophils # 0.0 0.0 Basophils # 0.0 0.0 Nucleated Red Blood Cells # 0.0 0.0 Sodium Level 140 142 Potassium Level 4.1 4.2 Chloride Level 109 108 Carbon Dioxide Level 29 30 Anion Gap 2 L 4 L Blood Urea Nitrogen Creatinine 0.50 0.55 Est Glomerular Filtrat Rate mL/min Glucose Level 90 96 Calcium Level 8.6 8.7 Consultation Date/Type/Reason Admit Date/Time Jun 14, 2018 at 17:13 Initial Consult Date 06/15/18 Requesting Provider: ISAIAH CANDELARIO 24 HR Interval Summary Free Text/Dictation No acute changes. Dressing clean and dry. Afebrile. Exam/Review of Systems Vital Signs Vitals Vital Signs Date Temp Pulse Resp B/P (MAP) Pulse Ox O2 O2 Flow FiO2 Time Delivery Rate 06/19/18 70 12 100 30 09:35 06/19/18 98.7 117/64 08:09 (81) 06/19/18 Mechanical 04:00 Ventilator Intake and Output 06/18/18 06/18/18 06/19/18 1515:00 23:00 07:00 IntakeIntake Total 50 ml 620 ml OutputOutput Total 400 ml BalanceBalance 50 ml 220 ml Exam Respiratory: clear to auscultation, diminished breath sounds Gastrointestinal: soft, tender (dressing over fistula clean and dry, g tube site clean and dry) Medications Medications Current Medications IV Flush (NS 3 ml) 3 ml PER PROTOCOL IV ; Start 06/14/18 at 18:30 Ondansetron HCl (Zofran Inj) 4 mg Q6H PRN IV NAUSEA AND/OR VOMITING; Start 06/14/18 at 18:30 Morphine Sulfate (morphine) 2 mg Q4H PRN IV SEVERE PAIN LEVEL 7-10 Last admini stered on 06/14/18at 19:09; Admin Dose 2 MG; Start 06/14/18 at 18:30 Amiodarone HCl (Cordarone) 400 mg BID GTB Last administered on 06/19/18at 09:14; Admin Dose 400 MG; Start 06/14/18 at 21:00 Apixaban (Eliquis) 2.5 mg BID GTB Last administered on 06/19/18at 09:15; Admin Dose 2.5 MG; Start 06/14/18 at 21:00 Ascorbic Acid (Vitamin C) 500 mg BID GTB Last administered on 06/19/18at 09:15; Admin Dose 500 MG; Start 06/14/18 at 21:00 Chlorhexidine Gluconate (Peridex) 15 ml QAM MM Last administered on 06/19/18 09:15; Admin Dose 15 ML; Start 06/15/18 at 09:00 Cholestyramine Resin (Questran) 1 pkt DAILY GTB Last administered on 06/19/18 09:14; Admin Dose 1 PKT; Start 06/15/18 at 09:00 Levothyroxine Sodium (Synthroid) 25 mcg BEFORE BREAKFAST GTB Last administered on 06/19/18 06:11; Admin Dose 25 MCG; Start 06/15/18 at 07:00 Quetiapine Fumarate (Seroquel) 25 mg BID GTB Last administered on 06/19/18 09:15; Admin Dose 25 MG; Start 06/14/18 at 21:00 Beta Carotene (Ocuvite) 1 tab DAILY GTB Last administered on 06/18/18 09:31; Admin Dose 1 TAB; Start 06/15/18 at 09:00 Pantoprazole (Protonix Iv) 40 mg DAILY@06 IV Last administered on 06/19/18 06:09; Admin Dose 40 MG; Start 06/16/18 at 06:00 Mupirocin (Bactroban) 1 applic DAILY TOP Last administered on 06/19/18 09:15; Admin Dose 1 APPLIC; Start 06/15/18 at 12:00 Meropenem/Sodium Chloride 50 ml @ 100 mls/hr Q12 IVPB Last administered on 06/19/18 09:19; Admin Dose 100 MLS/HR; Start 06/16/18 at 21:00 Nystatin (Nystatin Susp) 5 ml QID PO Last administered on 06/19/18 09:14; Admin Dose 5 ML; Start 06/16/18 at 13:00 Acetaminophen (Tylenol Liquid) 500 mg Q6H PRN GTB MILD PAIN(1-3)OR ELEVATED TEMP Last administered on 06/18/18 15:54; Admin Dose 500 MG; Start 06/17/18 at 11:00 Lorazepam (Ativan) 0.5 mg Q6H PRN IV ANXIETY Last administered on 06/18/18 23:57; Admin Dose 0.5 MG; Start 06/18/18 at 18:00 THOR PATHAK Jun 19, 2018 10:53
[2018-06-19] MEDS ORDERED: morphine LIQ (10 MG/5 ML) CUP GTB PRN (13:00)
[2018-06-19] MEDS ORDERED: morphine LIQ (10 MG/5 ML) CUP PO PRN (13:00)
[2018-06-19] MEDS: ACETAMINOPHEN 650MG/20.3ML CUP GTB PRN (13:58)
--- NOTE | 2018-06-19 14:07 | CONS ---
Date/Time of Note Date/Time of Note DATE: 06/19/18 TIME: 14:06 Consult Date/Type/Reason Admit Date/Time Jun 14, 2018 at 17:13 Initial Consult Date 06/15/18 Type of Consultation: Pulm Requesting Provider: ISAIAH CANDELARIO Subjective No events. Being d/c'ed to SNF today. Objective Vital Signs Date Temp Pulse Resp B/P (MAP) Pulse Ox O2 O2 Flow FiO2 Time Delivery Rate 06/19/18 98.7 13:52 06/19/18 70 12:34 06/19/18 15 117/60 99 12:10 (79) 06/19/18 30 11:12 06/19/18 Mechanical 04:00 Ventilator Intake and Output 06/18/18 06/18/18 06/19/18 1515:00 23:00 07:00 IntakeIntake Total 50 ml 620 ml OutputOutput Total 400 ml BalanceBalance 50 ml 220 ml Exam HEENT: Neck supple; no JVD; no LAD; + trach site clean CVS: RRR, S1 and S2 CHEST: Coarse rhomchi B/L ABD: Soft, NT, + BS EXT: No c/c; + edema Results/Medications Result Diagram: 06/19/18 0506 06/19/18 0506 Results 24 hrs Laboratory Tests Test 06/19/18 05:06 White Blood Count 7.4 Red Blood Count 3.03 L Hemoglobin 7.4 L Hematocrit 24.9 L Mean Corpuscular Volume 82.2 Mean Corpuscular Hemoglobin 24.4 L Mean Corpuscular Hemoglobin Concent 29.7 L Red Cell Distribution Width 18.0 H Platelet Count 240 # Mean Platelet Volume 12.4 H Immature Granulocytes % 0.500 H Neutrophils % 73.5 Lymphocytes % 18.6 Monocytes % 6.6 Eosinophils % 0.4 Basophils % 0.4 Nucleated Red Blood Cells % 0.0 Immature Granulocytes # 0.040 H Neutrophils # 5.4 Lymphocytes # 1.4 Monocytes # 0.5 Eosinophils # 0.0 Basophils # 0.0 Nucleated Red Blood Cells # 0.0 Sodium Level 142 Potassium Level 4.2 Chloride Level 108 Carbon Dioxide Level 30 Anion Gap 4 L Blood Urea Nitrogen 19 Creatinine 0.55 Est Glomerular Filtrat Rate mL/min Glucose Level 96 Calcium Level 8.7 Medications Current Medications IV Flush (NS 3 ml) 3 ml PER PROTOCOL IV ; Start 06/14/18 at 18:30 Ondansetron HCl (Zofran Inj) 4 mg Q6H PRN IV NAUSEA AND/OR VOMITING; Start 06/14/18 at 18:30 Amiodarone HCl (Cordarone) 400 mg BID GTB Last administered on 06/19/18 09:14; Admin Dose 400 MG; Start 06/14/18 at 21:00 Apixaban (Eliquis) 2.5 mg BID GTB Last administered on 06/19/18 09:15; Admin D ose 2.5 MG; Start 06/14/18 at 21:00 Ascorbic Acid (Vitamin C) 500 mg BID GTB Last administered on 06/19/18 09:15; Admin Dose 500 MG; Start 06/14/18 at 21:00 Chlorhexidine Gluconate (Peridex) 15 ml QAM MM Last administered on 06/19/18 09:15; Admin Dose 15 ML; Start 06/15/18 at 09:00 Cholestyramine Resin (Questran) 1 pkt DAILY GTB Last administered on 06/19/18 09:14; Admin Dose 1 PKT; Start 06/15/18 at 09:00 Levothyroxine Sodium (Synthroid) 25 mcg BEFORE BREAKFAST GTB Last administered on 06/19/18 06:11; Admin Dose 25 MCG; Start 06/15/18 at 07:00 Quetiapine Fumarate (Seroquel) 25 mg BID GTB Last administered on 06/19/18 09:15; Admin Dose 25 MG; Start 06/14/18 at 21:00 Beta Carotene (Ocuvite) 1 tab DAILY GTB Last administered on 06/18/18 09:31; Admin Dose 1 TAB; Start 06/15/18 at 09:00 Mupirocin (Bactroban) 1 applic DAILY TOP Last administered on 06/19/18 09:15; Admin Dose 1 APPLIC; Start 06/15/18 at 12:00 Meropenem/Sodium Chloride 50 ml @ 100 mls/hr Q12 IVPB Last administered on 06/19/18 09:19; Admin Dose 100 MLS/HR; Start 06/16/18 at 21:00 Nystatin (Nystatin Susp) 5 ml QID PO Last administered on 06/19/18 12:30; Admin Dose 5 ML; Start 06/16/18 at 13:00 Acetaminophen (Tylenol Liquid) 500 mg Q6H PRN GTB MILD PAIN(1-3)OR ELEVATED TEMP Last administered on 06/19/18at 13:58; Admin Dose 500 MG; Start 06/17/18 at 11:00 Lorazepam (Ativan) 0.5 mg Q6H PRN IV ANXIETY Last administered on 06/18/18at 23:57; Admin Dose 0.5 MG; Start 06/18/18 at 18:00 Morphine Sulfate (morphine) 6 mg Q4H PRN GTB SEVERE PAIN LEVEL 7-10; Start 06/19/18 at 13:00 Lansoprazole (Prevacid) 30 mg DAILY@06 GTB ; Start 06/20/18 at 06:00 Assessment/Plan Additional Assessment/Plan IMP: 1. Sepsis 2/2 urinary source 2. VDRF 3. Hypothyroidism 4. Afib 5. Anemia RECS: 1. Vent support 2. BD's 3. CPT 4. Abx per ID 5. TF/Free H20 6. D/C planning ANNIE JETT MD Jun 19, 2018 14:07
--- NOTE | 2018-06-19 16:38 | CONS ---
Date/Time of Note Date/Time of Note DATE: 06/19/18 TIME: 16:26 Assessment/Plan Assessment/Plan Hospital Course ID PROGRESS NOTE CURRENT ABX: DAY #5+ => MERREM #3+ s/p Vanco IV/Zosyn 06/19/18 0506 06/19/18 0506 24H INTERVAL SUMMARY * Confused and restless on the Vent -- she pulls off the Trach tubing from the trach. * Daughter reports patient c/o "ABD Pain" * From sepsis standpoint -- clinically improved -- afebrile, VSS, WBC normal * Indwelling: Trach PEG Henry, left upper extremity PICC line MICRO * Microbiology: Urine culture grew E. coli ESBL blood culture remains negative PHYSICAL EXAMINATION: GENERAL: Afebrile, VSS, HEENT: AT, NC, anicteric NECK: Supple, trach midline CHEST: Equal chest rise bilaterally, without dyspnea on observation HEART: Pulse RRR ABDOMEN: Soft / NT ABD DSG present right-sided dressing clean dry and intact. EXTREMITIES: Warm, dry SKIN: No rash, no diaphoresis ID ASSESSMENT 87 yo F admit with: 1. Sepsis, present on admission => RESOLVED * 06/14/18 BCx (-) 2. E. coli ESBL UTI 3. Chronic respiratory failure 2n2/2 CHF and PNA 4. Coronary artery disease status post permanent pacemaker 5. 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 Oral thrush 7. Anemia, acute on chronic * -retic elevated, iron low, TIBC wnl, percent sat low * -Anemia work up noted, FOB neg x 2 8.A fib, s/p pacemaker placement, on Eliquis (-)MRSA Nares ABX ALLERGIES: NKDA INVASIVES: PI CURRENT ABX: DAY DAY #5+ => MERREM #3 s/p Vanco IV/Zosyn ID RECOMMENDATIONS/PLAN: Continue current ABX -- anticipate 7-10 days Merrem for ESBL UTI . Result Diagram: 06/19/18 0506 06/19/18 0506 Results 24hrs Laboratory Tests Test 06/19/18 05:06 White Blood Count 7.4 Red Blood Count 3.03 L Hemoglobin 7.4 L Hematocrit 24.9 L Mean Corpuscular Volume 82.2 Mean Corpuscular Hemoglobin 24.4 L Mean Corpuscular Hemoglobin Concent 29.7 L Red Cell Distribution Width 18.0 H Platelet Count 240 # Mean Platelet Volume 12.4 H Immature Granulocytes % 0.500 H Neutrophils % 73.5 Lymphocytes % 18.6 Monocytes % 6.6 Eosinophils % 0.4 Basophils % 0.4 Nucleated Red Blood Cells % 0.0 Immature Granulocytes # 0.040 H Neutrophils # 5.4 Lymphocytes # 1.4 Monocytes # 0.5 Eosinophils # 0.0 Basophils # 0.0 Nucleated Red Blood Cells # 0.0 Sodium Level 142 Potassium Level 4.2 Chloride Level 108 Carbon Dioxide Level 30 Anion Gap 4 L Blood Urea Nitrogen 19 Creatinine 0.55 Est Glomerular Filtrat Rate mL/min Glucose Level 96 Calcium Level 8.7 Consultation Date/Type/Reason Admit Date/Time Jun 14, 2018 at 17:13 Initial Consult Date 06/15/18 Requesting Provider: ISAIAH CANDELARIO Exam/Review of Systems Vital Signs Vitals Vital Signs Date Temp Pulse Resp B/P (MAP) Pulse Ox O2 O2 Flow FiO2 Time Delivery Rate 06/19/18 72 12 100 30 15:15 06/19/18 98.7 13:52 06/19/18 117/60 12:10 (79) 06/19/18 Mechanical 04:00 Ventilator Intake and Output 06/18/18 06/18/18 06/19/18 1515:00 23:00 07:00 IntakeIntake Total 50 ml 620 ml OutputOutput Total 400 ml BalanceBalance 50 ml 220 ml Medications Medications Current Medications IV Flush (NS 3 ml) 3 ml PER PROTOCOL IV ; Start 06/14/18 at 18:30 Ondansetron HCl (Zofran Inj) 4 mg Q6H PRN IV NAUSEA AND/OR VOMITING; Start 06/14/18 at 18:30 Amiodarone HCl (Cordarone) 400 mg BID GTB Last administered on 06/19/18at 09:14; Admin Dose 400 MG; Start 06/14/18 at 21:00 Apixaban (Eliquis) 2.5 mg BID GTB Last administered on 06/19/18at 09:15; Admin Dose 2.5 MG; Start 06/14/18 at 21:00 Ascorbic Acid (Vitamin C) 500 mg BID GTB Last administered on 06/19/18at 09:15; Admin Dose 500 MG; Start 06/14/18 at 21:00 Chlorhexidine Gluconate (Peridex) 15 ml QAM MM Last administered on 06/19/18 09:15; Admin Dose 15 ML; Start 06/15/18 at 09:00 Cholestyramine Resin (Questran) 1 pkt DAILY GTB Last administered on 06/19/18 09:14; Admin Dose 1 PKT; Start 06/15/18 at 09:00 Levothyroxine Sodium (Synthroid) 25 mcg BEFORE BREAKFAST GTB Last administered on 06/19/18 06:11; Admin Dose 25 MCG; Start 06/15/18 at 07:00 Quetiapine Fumarate (Seroquel) 25 mg BID GTB Last administered on 06/19/18 09:15; Admin Dose 25 MG; Start 06/14/18 at 21:00 Beta Carotene (Ocuvite) 1 tab DAILY GTB Last administered on 06/18/18 09:31; Admin Dose 1 TAB; Start 06/15/18 at 09:00 Mupirocin (Bactroban) 1 applic DAILY TOP Last administered on 06/19/18 09:15; Admin Dose 1 APPLIC; Start 06/15/18 at 12:00 Meropenem/Sodium Chloride 50 ml @ 100 mls/hr Q12 IVPB Last administered on 06/19/18 09:19; Admin Dose 100 MLS/HR; Start 06/16/18 at 21:00 Nystatin (Nystatin Susp) 5 ml QID PO Last administered on 06/19/18 12:30; Admin Dose 5 ML; Start 06/16/18 at 13:00 Acetaminophen (Tylenol Liquid) 500 mg Q6H PRN GTB MILD PAIN(1-3)OR ELEVATED TEMP Last administered on 06/19/18 13:58; Admin Dose 500 MG; Start 06/17/18 at 11:00 Lorazepam (Ativan) 0.5 mg Q6H PRN IV ANXIETY Last administered on 06/18/18 23 :57; Admin Dose 0.5 MG; Start 06/18/18 at 18:00 Morphine Sulfate (morphine) 6 mg Q4H PRN GTB SEVERE PAIN LEVEL 7-10; Start 06/19/18 at 13:00 Lansoprazole (Prevacid) 30 mg DAILY@06 GTB ; Start 06/20/18 at 06:00 SUSANA MANN NP Jun 19, 2018 16:37
[2018-06-19] MEDS: LORAZEPAM 2 MG INJ IV PRN (16:50)
[2018-06-19] MEDS: BETA CAROTENE/VIT C/E/MIN TAB GTB SCH (16:52)
--- NOTE | 2018-06-19 18:03 | DS ---
Date/Time of Note Date/Time of Note DATE: 06/19/18 TIME: 17:56 Discharge Summary Admission/Discharge Info Admit Date/Time Jun 14, 2018 at 17:13 Discharge Date/Time Jun 19, 2018 at 17:30 Discharge Diagnosis 1. Septic shock secondary to UTI-improved Urine culture is growing ESBL E. coli Continue meropenem at the nursing facility for another 9 days ID consultation appreciated Status post IV fluids Patient has remained afebrile now for 2 days 2. Chronic respiratory failure secondary to CHF and pneumonia status post tracheostomy Continue vent support Pulmonology consultation appreciated,, patient will need to continue vent support at the subacute 3. Dementia with functional quadriplegia Patient resides in a shelter 4. A. fib status post pacemaker placement Continue anticoagulation Cardiology consultation appreciated 5. Normocytic anemia likely secondary to chronic disease Monitor No indication for transfusion at this time 6. Metabolic alkalosis likely secondary to contraction-resolved with fluids IV fluids 7. Azotemia secondary to dehydration-improved with fluids IV fluids 8. 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 by Dr Earl GI consultation appreciated 9. Hypothyroidism Continue home meds Patient Condition: Fair Hospital Course Patient is an 87-year-old female with a history of dementia with functional quadriplegia, respiratory failure status post tracheostomy, diastolic heart failure, hypothyroidism, A. fib status post pacemaker placement, septic shock secondary to pneumonia and UTI. Patient was transferred from shelter due to hypotension and fevers. Patient was noted to be septic secondary to UTI, urine culture did grow ESBL E. coli, patient was seen by ID and placed on meropenem. Patient was febrile on presentation and ultimately was afebrile for 2 days prior to DC. Patient was stable for DC back to shelter for 9 more days of meropenem. Patient was to continue vent support through the trach. On the day of discharge patient's vitals, labs and physical exam are stable, family's questions were answered. Home Meds Reported Medications Chlorhexidine Gluconate (Peridex) 473 Ml Mouthwash, 15 ML MM QAM, BOTTLE 06/14/18 Ondansetron Hcl* (Zofran*) 4 Mg Tab, 4 MG PO Q6H PRN for NAUSEA AND OR VOMITING, TAB 06/14/18 Quetiapine Fumarate* (Seroquel*) 25 Mg Tablet, 25 MG GTB BID, #60 TAB 06/14/18 Nystatin (Nystatin) 100,000 Unit/1 Ml Oral.susp, 5 ML PO QID PRN for PRN, #60 ML 06/14/18 Quetiapine Fumarate* (Seroquel*) 25 Mg Tablet, 25 MG GTB BID, #60 TAB 06/14/18 Digoxin* (Digitek*) 125 Mcg Tablet, 0.125 MG PO Q48H, TAB 06/14/18 Cholestyramine* (Questran*) 1 Pkt Susp, 4 GM GTB DAILY, PACKET 06/14/18 Vit A,C & E/Lutein/Minerals (Ocuvite) 1 Each Tablet, 1 TAB GTB DAILY, TAB 06/14/18 Levothyroxine Sodium* (Levothyroxine Sodium*) 25 Mcg Tablet, 25 MCG GTB BEFORE BREAKFAST, #30 TAB 06/14/18 Lansoprazole* (Lansoprazole*) 30 Mg Capsule.dr, 30 MG GTB DAILY, CAP 06/14/18 Ascorbic Acid* (Vitamin C*) 500 Mg Capsule.sa, 500 MG GTB BID, CAP 06/14/18 Apixaban* (Eliquis*) 2.5 Mg Tablet, 2.5 MG GTB BID, TAB 06/14/18 Amiodarone Hcl* (Amiodarone Hcl*) 200 Mg Tablet, 400 MG GTB BID, #180 TAB 06/14/18 Metoprolol Tartrate* (Lopressor*) 25 Mg Tab, 25 MG GTB BID, #60 TAB 06/14/18 Balsam [place] Oil (Venelex Ointment) 60 Gm Oint..gm., 1 APPLIC TOP NE EDED PRN for PRN, #1 TUB 06/14/18 Mupirocin Calcium* (Mupirocin*) 2% - 15 Gram Cream..g., 1 APPLIC TOP DAILY, #1 TUB 06/14/18 Discontinued Reported Medications [Chlorhexadine] No Conflict Check 06/07/18 [Lorazepam] No Conflict Check 06/07/18 [Zofran] No Conflict Check 06/07/18 [Acetaminophen] No Conflict Check 06/07/18 [Lomotil] No Conflict Check 06/07/18 [Florajen3] No Conflict Check 06/07/18 [Nystatin] No Conflict Check 06/07/18 [Questran] No Conflict Check 06/07/18 [Multivitamin Liquid] No Conflict Check 06/07/18 [Amiodarone] No Conflict Check 06/07/18 [Seroquel] No Conflict Check 06/07/18 [Levothyroxine ] No Conflict Check 06/07/18 Digoxin* (Lanoxin*) 125 Mcg Tablet, 125 MCG PO DAILY 10/07/12 Follow-up Plan Follow-up with physicians at the retirement facility [facility] Time spent on discharge: > 30 minutes ISAIAH CANDELARIO Jun 19, 2018 18:03
[2018-06-20] MEDS ORDERED: LANSOPRAZOLE 30 MG CAP GTB SCH (06:00)
== END 2018-06-19 17:30 | DRG 870 ==
LOC: E/R 13:36 → ICU 17:13 → 6WM 06-15 11:24
PROVIDERS: ADMIT Internal Medicine; ATTEND Internal Medicine
PROC: 5A1955Z Respiratory Ventilation, Greater than 96 Consecutive Hours (ICD-10-PCS; principal; 2018-06-14)
PROC: 4A133R1 Monitoring of Arterial Saturation, Peripheral, Percutaneous Approach (ICD-10-PCS; 2018-06-14)
PROC: B54MZZA Ultrasonography of Right Upper Extremity Veins, Guidance (ICD-10-PCS; 2018-06-15)
PROC: 05H733Z Insertion of Infusion Device into Right Axillary Vein, Percutaneous Approach (ICD-10-PCS; 2018-06-15)
DX: A41.9 Sepsis, unspecified organism (principal); R65.21 Severe sepsis with septic shock; J18.9 Pneumonia, unspecified organism; R53.2 Functional quadriplegia; N39.0 Urinary tract infection, site not specified; E87.4 Mixed disorder of acid-base balance; G93.40 Encephalopathy, unspecified; I50.32 Chronic diastolic (congestive) heart failure; Z99.11 Dependence on respirator [ventilator] status; J84.9 Interstitial pulmonary disease, unspecified; B37.0 Candidal stomatitis; J96.12 Chronic respiratory failure with hypercapnia; E86.0 Dehydration; I48.91 Unspecified atrial fibrillation; I11.0 Hypertensive heart disease with heart failure; R13.10 Dysphagia, unspecified; E78.5 Hyperlipidemia, unspecified; F03.90 Unspecified dementia, unspecified severity, without behavioral disturbance, psychotic disturbance, mood disturbance, and anxiety; I25.10 Atherosclerotic heart disease of native coronary artery without angina pectoris; E03.9 Hypothyroidism, unspecified; Z93.0 Tracheostomy status; D63.8 Anemia in other chronic diseases classified elsewhere; I48.0 Paroxysmal atrial fibrillation; Z93.1 Gastrostomy status; B96.20 Unspecified Escherichia coli [E. coli] as the cause of diseases classified elsewhere; Z16.12 Extended spectrum beta lactamase (ESBL) resistance; D69.6 Thrombocytopenia, unspecified; Z95.0 Presence of cardiac pacemaker; Z79.01 Long term (current) use of anticoagulants
CPT/HCPCS: 36415; 36600; 70450; 71045; 76937; 80048; 80053; 80162; 81001; 82270; 82607; 82728; 82746; 82803; 83540; 83605; 83735; 83880; 84100; 84439; 84443; 84484; 85025; 85045; 85610; 85730; 87040; 87070; 87081; 87086; 90686; 93005; 94002; 94003; 96365; 96366; 96375; C1769; C9113; J0360; J2060; J2185; J2270; J2543; J3370; J7030; P9612